=== PATIENT | female | born 1945 | race Caucasian/White ===

== ENCOUNTER → 2017-06-03 | Outpatient (CLI) | payer MEDICARE ==
[2017-06-03 11:42] LABS: ALT 56 U/L (9-52); AST 37 U/L (14-36); Cholesterol 194 mg/dL (<200); Creatine Kinase 150 U/L (30-135); Glucose 92 mg/dL (74-99); HDL Cholesterol 92 mg/dL (40-60); Non-African American GFR(MDRD) >60 (>60 ml/min/1.73 sqM); Triglycerides 114 mg/dL (<150)
[2017-06-03 14:07] LABS: Hemoglobin A1C 5.8 % (4.2-6.1)
== END | disposition home or self-care (01) ==
LOC: LABWHC1 11:03
PROVIDERS: ATTEND Internal Medicine
DX: E78.2 Mixed hyperlipidemia (principal); E03.9 Hypothyroidism, unspecified; E66.09 Other obesity due to excess calories; I25.10 Atherosclerotic heart disease of native coronary artery without angina pectoris; R73.09 Other abnormal glucose
CPT/HCPCS: 36415; 80061; 82172; 82306; 82550; 82565; 82947; 83036; 84443; 84450; 84460

== ENCOUNTER 2017-09-25 00:58 | Inpatient (IN) | payer MEDICARE ==
[2017-09-25] MEDS ORDERED: SODIUM CHLORIDE 0.9% 1,000 ML IV STA (01:21)
[2017-09-25] MEDS ORDERED: ONDANSETRON 4 MG/2 ML VIAL IVP STA (01:21)
[2017-09-25] MEDS ORDERED: MORPHINE SULFATE 2 MG/ML SYRINGE IVP ONE (01:22)
[2017-09-25 01:46] LABS: Basophils % (A) 0 %; CH 31.3; CHCM 34.1; Eosinophils # (A) 0.1 k/uL (0-0.7); Eosinophils % (A) 1 %; HCT 39.7 % (34.0-46.0); HDW 3.03; HGB 13.2 gm/dL (11.4-16.0); Luc # (Auto) 0.11; Luc % (Auto) 1; Lymphocytes % (A) 12 %; MCH 30.7 pg (25.0-35.0); MCHC 33.3 g/dL (31.0-37.0); MCV 92.2 fL (80.0-100.0); Mean Platelet Volume 8.4; Monocytes # (A) 0.5 k/uL (0-1.0); Monocytes % (A) 5 %; Neutrophils # (A) 6.9 k/uL (1.3-7.7); Neutrophils % (A) 80 %; RDW 13.1 % (11.5-15.5); WBC 8.6 k/uL (3.8-10.6); WBC (Perox) 8.91
[2017-09-25 01:55] LABS: Appearance,Urine Clear (Clear); Bilirubin,Urine Negative (Negative); Glucose,Urine (UA) Trace (Negative); Ketones,Urine Negative (Negative); Leukocyte Esterase,Urine Negative (Negative); Nitrite,Urine Negative (Negative); PH, Urine 7.5 (5.0-8.0); Protein,Urine Negative (Negative); Specific Gravity,Urine 1.006 (1.001-1.035); UA Billing (MACRO vs. MICRO) CHEM; Urobilinogen,Urine <2.0 mg/dL (<2.0)
[2017-09-25 02:02] LABS: ALT 442 U/L (9-52); AST 723 U/L (14-36); Alkaline Phosphatase 133 U/L (38-126); Amylase <30 U/L (30-110); Anion Gap 7 mmol/L; Blood Urea Nitrogen 17 mg/dL (7-17); Calcium 9.4 mg/dL (8.4-10.2); Carbon Dioxide 28 mmol/L (22-30); Chloride 102 mmol/L (98-107); Glucose 139 mg/dL (74-99); Non-African American GFR(MDRD) >60 (>60 ml/min/1.73 sqM); Potassium 3.8 mmol/L (3.5-5.1); Sodium 137 mmol/L (137-145); Total Bilirubin 1.1 mg/dL (0.2-1.3); Total Protein 6.4 g/dL (6.3-8.2)
[2017-09-25] MEDS ORDERED: HYDROmorphone 1 MG/ML 1 ML SYRINGE IVP STA ×2 (02:15→03:25)
[2017-09-25] MEDS ORDERED: RX INFO: IV CONTRAST WAS GIVEN 1 EACH MISC MISCELLANE PRN (02:19)
--- NOTE | 2017-09-25 02:39 | ED ---
Back Pain HPI - General Source: patient, EMS, RN notes reviewed, old records reviewed Limitations: no limitations, physical limitation <Sweta Patel - Last Filed: 09/25/17 03:17> <Sanjeev Faria - Last Filed: 09/25/17 18:38> - General Chief Complaint: Back Pain/Injury Stated Complaint: back pain Time Seen by Provider: 09/25/17 01:01 - History of Present Illness Initial Comments: 72-year-old female with recent right lower extremity ORIF for a bimalleolar fracture presents emergency department today with increased right-sided upper back pain radiates towards her right side of her abdomen. Patient reports that she's had increased urinary frequency. She thinks she may have urinary tract infection. She reports that she is currently staying [facility]. She states that she had one episode of vomiting and a low-grade fever, which prompted them to call EMS. Patient's sutures were removed from her right ankle today and she was evaluated by orthopedic physician. She reports that she 's been healing well. She was switched into a walking boot. Patient states that she's had a history of appendectomy, total hysterectomy. She reports she still has her gallbladder. She denies any history of kidney stones. Denies any changes in bowel habits or urination besides urinary frequency. Denies any chest pain or shortness of breath. (Sweta Patel) - Related Data Home Medications Medication Instructions Recorded Confirmed ALPRAZolam [Xanax] 0.25 mg PO BID PRN 09/05/17 09/25/17 Albuterol Nebulized [Ventolin 2.5 mg INHALATION RT-Q4H PRN 09/05/17 09/25/17 Nebulized] Albuterol Sulfate [Proair Hfa] 1 - 2 puff INHALATION RT-Q6H PRN 09/05/17 Calcium Carbonate [Calcium] 600 mg PO DAILY 09/05/17 09/25/17 Cetirizine HCl [Zyrtec] 10 mg PO DAILY 09/05/17 09/25/17 Cholecalciferol [Vitamin D3] 5,000 unit PO HS 09/05/17 09/25/17 Doxycycline Monohydrate [Monodox] 100 mg PO DAILY 09/05/17 09/25/17 Fish Oil/Dha/Epa [Fish Oil 1,200 1 cap PO DAILY 09/05/17 09/25/17 mg Fish Oil] Fluticasone Propionate [Flovent 1 puff INHALATION RT-BID 09/05/17 09/25/17 Hfa 44 mcg] Gabapentin [Neurontin] 800 mg PO TID 09/05/17 09/25/17 Levothyroxine Sodium [Synthroid] 100 mcg PO DAILY 09/05/17 09/25/17 Losartan Potassium [Cozaar] 25 mg PO DAILY 09/05/17 09/25/17 Magnesium 800 mg PO DAILY 09/05/17 09/25/17 Metoprolol Succinate (ER) [Toprol 50 mg PO BID 09/05/17 09/25/17 XL] Montelukast [Singulair] 10 mg PO HS 09/05/17 09/25/17 Multivitamins, Thera [Multivitamin 1 tab PO DAILY 09/05/17 09/25/17 (formulary)] Ranolazine [Ranexa] 500 mg PO BID 09/05/17 09/25/17 Tiotropium 18 Mcg/Puff [Spiriva] 1 cap INHALATION RT-DAILY 09/05/17 09/25/17 Triamterene/Hydrochlorothiazid 1 tab PO DAILY 09/05/17 09/25/17 [Triamterene-Hctz 37.5-25 mg Tb] Ubidecarenone [Co Q-10] 100 mg PO DAILY 09/05/17 09/25/17 Zolpidem [Ambien] 10 mg PO HS 09/05/17 09/25/17 amLODIPine [Norvasc] 10 mg PO DAILY 09/05/17 09/25/17 Fluticasone/Vilanterol [Breo 1 puff INHALATION RT-DAILY 09/25/17 09/25/17 Ellipta 100-25 Mcg Inhaler] HYDROcodone/APAP 7.5-325MG [[place] 1 tab PO Q6HR 09/25/17 09/25/17 7.5] Hydrocodone/Acetaminophen [[place] 1 tab PO TID PRN 09/25/17 09/25/17 7.5-325] Sennosides-Docusate Sodium 2 tab PO HS PRN 09/25/17 09/25/17 [Senokot-S] Previous Rx's Medication Instructions Recorded Aspirin 325 mg PO BID #60 tab 09/09/17 Psyllium Husk 100% [Metamucil 1 packet PO DAILY #7 packet 09/09/17 Packet] Allergies Allergy/AdvReac Type Severity Reaction Status Date / Time gluten Allergy Unknown Verified 09/05/17 19:33 hydromorphone [From Dilaudid] Allergy Unknown Verified 09/05/17 19:51 levofloxacin [From Levaquin] Allergy Unknown Verified 09/05/17 19:33 meperidine [From Demerol] Allergy Unknown Verified 09/05/17 19:51 moxifloxacin [From Avelox] Allergy Unknown Verified 09/05/17 20:37 nitrofurantoin Allergy Unknown Verified 09/05/17 20:37 [From Macrodantin] pitavastatin [From Livalo] Allergy Unknown Verified 09/05/17 20:37 prochlorperazine Allergy Unknown Verified 09/05/17 19:08 [From Compazine] solifenacin [From Vesicare] Allergy Unknown Verified 09/05/17 20:37 Sulfa (Sulfonamide Allergy Unknown Verified 09/05/17 19:08 Antibiotics) wheat Allergy Unknown Verified 09/05/17 19:33 Review of Systems ROS Other: All systems not noted in ROS Statement are negative. <Sweta Patel - Last Filed: 09/25/17 03:17> ROS Other: All systems not noted in ROS Statement are negative. <Sanjeev Faria - Last Filed: 09/25/17 18:38> ROS Statement: Those systems with pertinent positive or pertinent negative responses have been documented in the HPI. Past Medical History Past Medical History: Asthma, Hyperlipidemia, Hypertension Additional Past Medical History / Comment(s): neuropathy, left BB, history or cardiac caths, diverticulitis History of Any Multi-Drug Resistant Organisms: None Reported Past Surgical History: Appendectomy, Back Surgery, Bladder Surgery, Hysterectomy , Tonsillectomy Additional Past Surgical History / Comment(s): exp lap. ruptured ovary. bladder suspension, eye surgery Past Anesthesia/Blood Transfusion Reactions: No Reported Reaction Past Psychological History: No Psychological Hx Reported Smoking Status: Former smoker Past Alcohol Use History: None Reported Past Drug Use History: None Reported - Past Family History Mother Family Medical History: CVA/TIA Additional Family Medical History / Comment(s): TIA, at age 99 Father Family Medical History: Myocardial Infarction ([place]) Additional Family Medical History / Comment(s): of [place] at 73 Brother(s) Family Medical History: Diabetes Mellitus <Sweta Patel - Last Filed: 09/25/17 03:17> General Exam Limitations: no limitations, physical limitation General appearance: alert, in no apparent distress Head exam: Present: atraumatic, normocephalic, normal inspection Eye exam: Present: normal appearance, PERRL, EOMI. Absent: scleral icterus, conjunctival injection, periorbital swelling ENT exam: Present: normal exam, mucous membranes moist Neck exam: Present: normal inspection. Absent: tenderness, meningismus, lymphadenopathy Respiratory exam: Present: normal lung sounds bilaterally. Absent: respiratory distress, wheezes, rales, rhonchi, stridor Cardiovascular Exam: Present: regular rate, normal rhythm, normal heart sounds. Absent: systolic murmur, diastolic murmur, rubs, gallop, clicks GI/Abdominal exam: Present: soft, tenderness (RUQ tenderness), normal bowel sounds. Absent: distended, guarding, rebound, rigid Extremities exam: Present: normal inspection, full ROM, normal capillary refill , other (Patient has walking cast on R lower leg, ankle has recent incision from surgery. No Major swelling, redness or drainage. Normal dorsalis pedis pulse). Absent: tenderness, pedal edema, joint swelling, calf tenderness Back exam: Present: normal inspection Neurological exam: Present: alert, oriented X3, CN II-XII intact Psychiatric exam: Present: normal affect, normal mood Skin exam: Present: warm, dry, intact, normal color. Absent: rash <Sweta Patel - Last Filed: 09/25/17 03:17> <Sanjeev Faria - Last Filed: 09/25/17 18:38> - General Exam Comments Initial Comments: 72 year old female, no distress. (Sweta Patel) Course <Sweta Patel - Last Filed: 09/25/17 03:17> <Sanjeev Faria - Last Filed: 09/25/17 18:38> Vital Signs 09/25/17 09/25/17 09/25/17 01:01 03:15 04:01 Temperature 98.2 F 98.2 F Pulse Rate 75 78 72 Respiratory 18 16 16 Rate Blood Pressure 174/79 155/72 152/71 O2 Sat by Pulse 100 97 99 Oximetry - Reevaluation(s) Reevaluation #1: 09/25/17 03:18 is reevaluated and resting comfortably in bed. She reports her pain is diminished. Was informed that all results and she'll be admitted. Patient agrees. (Sweta Patel) Medical Decision Making - Lab Data Result diagrams: 09/25/17 01:35 09/25/17 01:35 - Radiology Data Radiology results: report reviewed <Sweta Patel - Last Filed: 09/25/17 03:17> - Lab Data Result diagrams: 09/25/17 01:35 09/25/17 01:35 <Sanjeev Faria - Last Filed: 09/25/17 18:38> - Medical Decision Making 72-year-old female with recent history of right ankle ORIF presents emergency Department with right-sided back pain radiate towards the front of her abdomen for approximately one day. She reports that it was only area of her "brown strep". Patient had one episode of vomiting and a low-grade fever when she was at the [facility]. She is currently there for rehab after ORIF. At this time patient's lab work was reviewed. Urinalysis is negative. White blood cell count was within normal limits. Patient does have significantly elevated liver enzymes.AST is 723, ALTs 442, ALP is 133. Her total bilirubin is 1.1. Patient's lab work on 09/16/2017 showed an AST of 35, ALTs 51, and ALP of 72. Her total bilirubin was 0.3 at that time. Did order an acute hepatitis panel. Computed tomography scan shows significantly dilated gallbladder. At the emergency department patient has no fever, vital signs are all stable. CT adipose tissue signs of acute cholecystitis. Right upper quadrant ultrasound be ordered for the morning. Patient will be admitted at this time. I'll start the patient on antibiotics, Zosyn. Discussed Dr. Faria, who will discuss this with Dr. Francis. Patient will admitted to Dr. Francis. (Sweta Patel) I saw this patient in conjunction with the physician ophthalmic surgical assistant. I performed independent history and physical exam. Agree with case management. Case discussed with Dr. Toro who is covering tonight for Dr. Francis. (Sanjeev Faria) - Lab Data Lab Results 09/25/17 09/25/17 09/25/17 Range/Units 01:31 01:35 01:35 WBC 8.6 (3.8-10.6) k/uL RBC 4.30 (3.80-5.40) m/uL Hgb 13.2 (11.4-16.0) gm/dL Hct 39.7 (34.0-46.0) % MCV 92.2 (80.0-100.0) fL MCH 30.7 (25.0-35.0) pg MCHC 33.3 (31.0-37.0) g/dL RDW 13.1 (11.5-15.5) % Plt Count 266 (150-450) k/uL Neutrophils % 80 % Lymphocytes % 12 % Monocytes % 5 % Eosinophils % 1 % Basophils % 0 % Neutrophils # 6.9 (1.3-7.7) k/uL Lymphocytes # 1.0 (1.0-4.8) k/uL Monocytes # 0.5 (0-1.0) k/uL Eosinophils # 0.1 (0-0.7) k/uL Basophils # 0.0 (0-0.2) k/uL Sodium 137 (137-145) mmol/L Potassium 3.8 (3.5-5.1) mmol/L Chloride 102 (98-107) mmol/L Carbon Dioxide 28 (22-30) mmol/L Anion Gap 7 mmol/L BUN 17 (7-17) mg/dL Creatinine 0.70 (0.52-1.04) mg/dL Est GFR (MDRD) Af Amer >60 (>60 ml/min/1.73 sqM) Est GFR (MDRD) Non-Af >60 (>60 ml/min/1.73 sqM) Glucose 139 H (74-99) mg/dL Calcium 9.4 (8.4-10.2) mg/dL Total Bilirubin 1.1 (0.2-1.3) mg/dL AST 723 H (14-36) U/L ALT 442 H (9-52) U/L Alkaline Phosphatase 133 H (38-126) U/L Total Protein 6.4 (6.3-8.2) g/dL Albumin 3.7 (3.5-5.0) g/dL Amylase <30 L (30-110) U/L Lipase 96 (23-300) U/L Urine Color Light Yellow Urine Appearance Clear (Clear) Urine pH 7.5 (5.0-8.0) Ur Specific [place] 1.006 (1.001-1.035) Urine Protein Negative (Negative) Urine Glucose (UA) Trace H (Negative) Urine Ketones Negative (Negative) Urine Blood Negative (Negative) Urine Nitrite Negative (Negative) Urine Bilirubin Negative (Negative) Urine Urobilinogen <2.0 (<2.0) mg/dL Ur Leukocyte Esterase Negative (Negative) Hepatitis A IgM Ab (Non-Reactive) Hep Bs Antigen (Non-Reactive) Hep B Core IgM Ab (Non-Reactive) Hep C IgG Ab (Non-Reactive) 09/25/17 Range/Units 01:35 WBC (3.8-10.6) k/uL RBC (3.80-5.40) m/uL Hgb (11.4-16.0) gm/dL Hct (34.0-46.0) % MCV (80.0-100.0) fL MCH (25.0-35.0) pg MCHC (31.0-37.0) g/dL RDW (11.5-15.5) % Plt Count (150-450) k/uL Neutrophils % % Lymphocytes % % Monocytes % % Eosinophils % % Basophils % % Neutrophils # (1.3-7.7) k/uL Lymphocytes # (1.0-4.8) k/uL Monocytes # (0-1.0) k/uL Eosinophils # (0-0.7) k/uL Basophils # (0-0.2) k/uL Sodium (137-145) mmol/L Potassium (3.5-5.1) mmol/L Chloride (98-107) mmol/L Carbon Dioxide (22-30) mmol/L Anion Gap mmol/L BUN (7-17) mg/dL Creatinine (0.52-1.04) mg/dL Est GFR (MDRD) Af Amer (>60 ml/min/1.73 sqM) Est GFR (MDRD) Non-Af (>60 ml/min/1.73 sqM) Glucose (74-99) mg/dL Calcium (8.4-10.2) mg/dL Total Bilirubin (0.2-1.3) mg/dL AST (14-36) U/L ALT (9-52) U/L Alkaline Phosphatase (38-126) U/L Total Protein (6.3-8.2) g/dL Albumin (3.5-5.0) g/dL Amylase (30-110) U/L Lipase (23-300) U/L Urine Color Urine Appearance (Clear) Urine pH (5.0-8.0) Ur Specific [place] (1.001-1.035) Urine Protein (Negative) Urine Glucose (UA) (Negative) Urine Ketones (Negative) Urine Blood (Negative) Urine Nitrite (Negative) Urine Bilirubin (Negative) Urine Urobilinogen (<2.0) mg/dL Ur Leukocyte Esterase (Negative) Hepatitis A IgM Ab Non-Reactive (Non-Reactive) Hep Bs Antigen Non-Reactive (Non-Reactive) Hep B Core IgM Ab Non-Reactive (Non-Reactive) Hep C IgG Ab Non-Reactive (Non-Reactive) - Radiology Data Sigmoid diverticulosis without sign of diverticulitis. No sign of appendicitis. Distended gallbladder with mild gallbladder wall thickening that is suggestive of cholecystitis. (Sweta Patel) Disposition Time of Disposition: 02:53 <Sweta Patel - Last Filed: 09/25/17 03:17> <Sanjeev Faria - Last Filed: 09/25/17 18:38> Clinical Impression: Elevated liver enzymes, Closed bimalleolar fracture of right ankle, Cholecystitis Disposition: ADMITTED IP TO THIS HOSP Condition: Stable
[2017-09-25] MEDS ORDERED: NALOXONE 0.4 MG/ML 1 ML VIAL IV PRN (02:53)
[2017-09-25] MEDS ORDERED: BISACODYL 5 MG TABLET.DR PO PRN (02:53)
[2017-09-25] MEDS ORDERED: IBUPROFEN 400 MG TAB PO PRN (02:53)
[2017-09-25] MEDS ORDERED: ACETAMINOPHEN TAB 325 MG TAB PO PRN (02:53)
--- NOTE | 2017-09-25 03:01 | CT ---
EXAMINATION TYPE: CT abdomen pelvis w con DATE OF EXAM: 09/25/2017 COMPARISON: NONE HISTORY: Elevated liver enzymes CT DLP: mGycm Automated exposure control for dose reduction was used. TECHNIQUE: Helical acquisition of images was performed from the lung bases through the pelvis. CONTRAST: The contrast was Omnipaque 100 mL.. FINDINGS: Lung bases are clear of consolidation. There is no pleural effusion. There is no pericardial effusion . Liver appears normal. Bile ducts are not dilated. Spleen appears normal. There is no pancreatic mas s. There is mild gallbladder wall thickening. Gallbladder is distended. Intrahepatic bile ducts are n ot dilated. There is no adrenal mass. Kidneys have normal size with normal contrast opacification. There is no hy dronephrosis. There are probably small pelvic cysts.. Ureters are not dilated. There is no hydronephr osis. There are sigmoid diverticula. There is no sign of diverticulitis. I see no intestinal wall thi ckening. There are no dilated loops. There is no sign of a bowel obstruction. Bladder distends smooth ly. There is no ascites. Bony structures are intact. IMPRESSION: THERE IS SIGMOID DIVERTICULOSIS WITHOUT SIGN OF DIVERTICULITIS. NO SIGN OF APPENDICITIS. DISTENDED GALLBLADDER WITH MILD GALLBLADDER WALL THICKENING THAT IS SUGGESTIVE OF CHOLECYSTITIS.
[2017-09-25] MEDS ORDERED: PIPERACILLIN-TAZOBACTAM 3.375 GM in DEXTROSE/WATER 1 50ML.BAG IVPB STA (03:10)
[2017-09-25] MEDS: SODIUM CHLORIDE 0.9% 1,000 ML IV SCH ×3 (03:27→21:54)
[2017-09-25 05:12] VITALS: BMI 30.4
[2017-09-25] MEDS: ONDANSETRON 4 MG/2 ML VIAL IVP PRN (05:39)
[2017-09-25] MEDS: HYDROmorphone 1 MG/ML 1 ML SYRINGE IVP PRN ×2 (05:39→15:19)
[2017-09-25] MEDS: KETOROLAC 30 MG/ML 1 ML VIAL IVP PRN ×3 (07:30→18:07)
--- NOTE | 2017-09-25 08:33 | P.GSHP ---
History of Present Illness H&P Date: 09/25/17 Chief Complaint: Right back right upper quadrant abdominal pain. The patient was admitted through the emergency room early hours of this morning. Presented with the sudden onset of pain in the right the back of right flank the lower chest area with some radiation to the abdomen. No past history of similar symptoms. Did have several episodes of nausea and vomiting. No definite fever or chills. Had recent ORIF are felt by malleolus fracture of the right ankle. No past history of gallbladder disease. She doesn't recall any family history of gallbladder disease. Apparently she was found to have elevated liver enzymes and a CAT scan showed the enlarged gallbladder with slight thickening of the abdomen was normal and WBC was normal. Past history well documented. Positive for hypertension asthma appendectomy explore laparotomy to ovarian cyst from endometriosis hysterectomy The meds as listed. ALLERGIES multiple including Dilaudid and Levaquin gluten Demerol, sulfa drugs. Systems review. No chest pain no cough or hemoptysis. Discomfort right lower extremity from the surgery. Has had some urinary frequency. Low-grade fever after she was admitted. On examination the patient is awake alert in no acute distress. She is anicteric. Hydration is borderline mucous membranes a little dry. Head and neck otherwise normal. Heart regular rhythm no murmurs lungs are clear abdomen is somewhat rounded the little overweight. The mild tenderness in the right upper quadrant of with no guarding or rebound or rigidity. No masses palpable. No hernias are noted. Extremities has right lower extremity immobilizer in place. No edema [employer] grossly intact focal deficits. CT was reviewed. No definite gallstones. Slight thickening of the gallbladder wall. Mild diverticulosis without evidence of acute diverticulitis. The liver enzymes were no marked good the elevation of her LFTs but the bili bilirubin is normal. CT was normal hemoglobin is normal urinalysis is unremarkable. Impression right lower back right upper quadrant pain. Normal LFTs. Not convinced her symptoms are secondary to acute cholecystitis. Her graft recommendation Will W ultrasound of afterwards performed today. Get GI consult. Check her the hepatitis profile. Further management will depend on her clinical course and findings. Past Medical History Past Medical History: Asthma, Hyperlipidemia, Hypertension Additional Past Medical History / Comment(s): neuropathy, left BB, history or cardiac caths, diverticulitis History of Any Multi-Drug Resistant Organisms: None Reported Past Surgical History: Appendectomy, Back Surgery, Bladder Surgery, Hysterectomy , Tonsillectomy Additional Past Surgical History / Comment(s): exp lap. ruptured ovary. bladder suspension, eye surgery Past Anesthesia/Blood Transfusion Reactions: No Reported Reaction Past Psychological History: No Psychological Hx Reported Smoking Status: Former smoker Past Alcohol Use History: None Reported Past Drug Use History: None Reported - Past Family History Mother Family Medical History: CVA/TIA Additional Family Medical History / Comment(s): TIA, at age 99 Father Family Medical History: Myocardial Infarction ([place]) Additional Family Medical History / Comment(s): of [place] at 73 Brother(s) Family Medical History: Diabetes Mellitus Medications and Allergies Home Medications Medication Instructions Recorded Confirmed Type ALPRAZolam [Xanax] 0.25 mg PO BID PRN 09/05/17 09/25/17 History Albuterol Nebulized [Ventolin 2.5 mg INHALATION RT-Q4H PRN 09/05/17 09/25/17 History Nebulized] Albuterol Sulfate [Proair Hfa] 1 - 2 puff INHALATION RT-Q6H PRN 09/05/17 History Calcium Carbonate [Calcium] 600 mg PO DAILY 09/05/17 09/05/17 History Cetirizine HCl [Zyrtec] 10 mg PO DAILY 09/05/17 09/25/17 History Cholecalciferol [Vitamin D3] 5,000 unit PO HS 09/05/17 09/25/17 History Doxycycline Monohydrate [Monodox] 100 mg PO DAILY 09/05/17 09/05/17 History Fish Oil/Dha/Epa [Fish Oil 1,200 1 cap PO DAILY 09/05/17 09/05/17 History mg Fish Oil] Fluticasone Propionate [Flovent 1 puff INHALATION RT-BID 09/05/17 09/25/17 History Hfa 44 mcg] Gabapentin [Neurontin] 800 mg PO TID 09/05/17 09/25/17 History Levothyroxine Sodium [Synthroid] 100 mcg PO DAILY 09/05/17 09/05/17 History Losartan Potassium [Cozaar] 25 mg PO DAILY 09/05/17 09/05/17 History Magnesium 4 PO DAILY 09/05/17 History Metoprolol Succinate (ER) [Toprol 50 mg PO BID 09/05/17 09/25/17 History XL] Montelukast [Singulair] 10 mg PO HS 09/05/17 09/05/17 History Multivitamins, Thera [Multivitamin 1 tab PO DAILY 09/05/17 09/05/17 History (formulary)] Ranolazine [Ranexa] 500 mg PO BID 09/05/17 09/25/17 History Tiotropium 18 Mcg/Puff [Spiriva] 1 cap INHALATION RT-DAILY 09/05/17 09/25/17 History Triamterene/Hydrochlorothiazid 1 tab PO DAILY 09/05/17 09/05/17 History [Triamterene-Hctz 37.5-25 mg Tb] Ubidecarenone [Co Q-10] 100 mg PO DAILY 09/05/17 09/05/17 History Zolpidem [Ambien] 10 mg PO HS 09/05/17 09/05/17 History amLODIPine [Norvasc] 10 mg PO DAILY 09/05/17 09/05/17 History Aspirin 325 mg PO BID #60 tab 09/09/17 09/25/17 Rx Psyllium Husk 100% [Metamucil 1 packet PO DAILY #7 packet 09/09/17 09/25/17 Rx Packet] Fluticasone/Vilanterol [Breo 1 puff INHALATION RT-DAILY 09/25/17 09/25/17 History Ellipta 100-25 Mcg Inhaler] HYDROcodone/APAP 7.5-325MG [[place] 1 tab PO Q6HR 09/25/17 09/25/17 History 7.5] Hydrocodone/Acetaminophen [[place] 1 tab PO TID PRN 09/25/17 09/25/17 History 7.5-325] Sennosides-Docusate Sodium 2 tab PO HS PRN 09/25/17 09/25/17 History [Senokot-S] Allergies Allergy/AdvReac Type Severity Reaction Status Date / Time gluten Allergy Unknown Verified 09/05/17 19:33 hydromorphone [From Dilaudid] Allergy Unknown Verified 09/05/17 19:51 levofloxacin [From Levaquin] Allergy Unknown Verified 09/05/17 19:33 meperidine [From Demerol] Allergy Unknown Verified 09/05/17 19:51 moxifloxacin [From Avelox] Allergy Unknown Verified 09/05/17 20:37 nitrofurantoin Allergy Unknown Verified 09/05/17 20:37 [From Macrodantin] pitavastatin [From Livalo] Allergy Unknown Verified 09/05/17 20:37 prochlorperazine Allergy Unknown Verified 09/05/17 19:08 [From Compazine] solifenacin [From Vesicare] Allergy Unknown Verified 09/05/17 20:37 Sulfa (Sulfonamide Allergy Unknown Verified 09/05/17 19:08 Antibiotics) wheat Allergy Unknown Verified 09/05/17 19:33 Surgical - Exam Vital Signs Temp Pulse Resp BP Pulse Ox 98.2 F 75 18 174/79 100 09/25/17 01:01 09/25/17 01:01 09/25/17 01:01 09/25/17 01:01 09/25/17 01:01 Results - Labs 09/25/17 01:35 09/25/17 01:35 Abnormal Lab Results - Last 24 Hours (Table) 09/25/17 09/25/17 Range/Units 01:31 01:35 Glucose 139 H (74-99) mg/dL AST 723 H (14-36) U/L ALT 442 H (9-52) U/L Alkaline Phosphatase 133 H (38-126) U/L Amylase <30 L (30-110) U/L Urine Glucose (UA) Trace H (Negative) Diabetes panel 09/25/17 Range/Units 01:35 Sodium 137 (137-145) mmol/L Potassium 3.8 (3.5-5.1) mmol/L Chloride 102 (98-107) mmol/L Carbon Dioxide 28 (22-30) mmol/L BUN 17 (7-17) mg/dL Creatinine 0.70 (0.52-1.04) mg/dL Glucose 139 H (74-99) mg/dL Calcium 9.4 (8.4-10.2) mg/dL AST 723 H (14-36) U/L ALT 442 H (9-52) U/L Alkaline Phosphatase 133 H (38-126) U/L Total Protein 6.4 (6.3-8.2) g/dL Albumin 3.7 (3.5-5.0) g/dL Calcium panel 09/25/17 Range/Units 01:35 Calcium 9.4 (8.4-10.2) mg/dL Albumin 3.7 (3.5-5.0) g/dL Pituitary panel 09/25/17 Range/Units 01:35 Sodium 137 (137-145) mmol/L Potassium 3.8 (3.5-5.1) mmol/L Chloride 102 (98-107) mmol/L Carbon Dioxide 28 (22-30) mmol/L BUN 17 (7-17) mg/dL Creatinine 0.70 (0.52-1.04) mg/dL Glucose 139 H (74-99) mg/dL Calcium 9.4 (8.4-10.2) mg/dL Adrenal panel 09/25/17 Range/Units 01:35 Sodium 137 (137-145) mmol/L Potassium 3.8 (3.5-5.1) mmol/L Chloride 102 (98-107) mmol/L Carbon Dioxide 28 (22-30) mmol/L BUN 17 (7-17) mg/dL Creatinine 0.70 (0.52-1.04) mg/dL Glucose 139 H (74-99) mg/dL Calcium 9.4 (8.4-10.2) mg/dL Total Bilirubin 1.1 (0.2-1.3) mg/dL AST 723 H (14-36) U/L ALT 442 H (9-52) U/L Alkaline Phosphatase 133 H (38-126) U/L Total Protein 6.4 (6.3-8.2) g/dL Albumin 3.7 (3.5-5.0) g/dL
[2017-09-25] MEDS: PANTOPRAZOLE 40 MG/10 ML VIAL IV SCH (08:43)
--- NOTE | 2017-09-25 09:56 | US ---
EXAMINATION TYPE: US gallbladder DATE OF EXAM: 09/25/2017 COMPARISON: CT abdomen and pelvis from earlier today CLINICAL HISTORY: Pain. known GB disease per CT and labs, surgery set for 09/26/2017 EXAM MEASUREMENTS: Liver Length: 15.4 cm Gallbladder Wall: 0.4 cm CBD: 0.6 cm Right Kidney: 10.3 x 5.3 x 4.1 cm Pancreas: limited views due to gas appears wnl Liver: difficult to penetrate due to gas and distended 10.5cm, diseased GB Gallbladder: thickened gb wall with internal debris that could include small stones, sludge and or p olyps Evidence for sonographic Haines's sign: no CBD: wnl Right Kidney: wnl Visualized pancreas is within normal limits. IVC is seen near hepatic dome. Visualized liver is heter ogeneously hyperechoic likely on basis of fatty infiltration. Gallbladder has distended margins and i s prominent in size. It is not completely anechoic suggesting small stones or gallbladder sludge. Gal lbladder wall is mildly thickened at 4 mm. No pericholecystic fluid collection is seen. Sonographic M urphy's sign is negative. IMPRESSION: Findings correlate with CT, prominent gallbladder with distended margins, suspect interna l sludge or small stones and mild gallbladder wall thickening. Acute cholecystitis cannot be excluded in the appropriate clinical setting.
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
[2017-09-25] MEDS: PIPERACILLIN-TAZOBACTAM 3.375 GM in DEXTROSE/WATER 1 50ML.BAG IVPB SCH ×2 (12:57→20:12)
[2017-09-25] MEDS ORDERED: SENNOSIDES-DOCUSATE SODIUM 1 EACH TAB PO PRN (17:24)
[2017-09-25] MEDS ORDERED: ALBUTEROL INHALER 60 PUFF/8 GM INHALER INHALATION PRN (17:24)
[2017-09-25] MEDS: HYDROcodone/APAP 7.5-325MG 1 EACH TAB PO PRN (19:23)
[2017-09-25] MEDS ORDERED: BUDESONIDE 0.5 MG/2 ML NEBU INHALATION SCH (20:00)
[2017-09-25] MEDS: amLODIPine 10 MG TAB PO SCH (20:08)
[2017-09-25] MEDS: LOSARTAN 25 MG TAB PO SCH (20:09)
[2017-09-25] MEDS: RANOLAZINE 500 MG TAB.ER.12H PO SCH (20:09)
[2017-09-25] MEDS: MONTELUKAST 10 MG TAB PO SCH (20:09)
[2017-09-25] MEDS: METOPROLOL SUCCINATE (ER) 50 MG TAB.ER.24H PO SCH (20:09)
[2017-09-25] MEDS: TRIAMTERENE-HCTZ 37.5-25MG 1 EACH TAB PO SCH (20:10)
[2017-09-25] MEDS: CHOLECALCIFEROL 1,000 UNIT TAB PO SCH (20:12)
[2017-09-25] MEDS: GABAPENTIN 400 MG CAP PO SCH (21:40)
[2017-09-25] MEDS: ZOLPIDEM 10 MG TAB PO SCH (21:40)
[2017-09-26] MEDS: HYDROmorphone 1 MG/ML 1 ML SYRINGE IVP PRN ×5 (01:35→17:49)
[2017-09-26] MEDS: KETOROLAC 30 MG/ML 1 ML VIAL IVP PRN (02:34)
[2017-09-26] MEDS: ONDANSETRON 4 MG/2 ML VIAL IVP PRN (02:49)
[2017-09-26] MEDS: PIPERACILLIN-TAZOBACTAM 3.375 GM in DEXTROSE/WATER 1 50ML.BAG IVPB SCH ×3 (03:29→20:34)
[2017-09-26] MEDS: SODIUM CHLORIDE 0.9% 1,000 ML IV SCH ×2 (03:46→08:40)
[2017-09-26] MEDS: LEVOTHYROXINE 100 MCG TAB PO SCH (05:04)
[2017-09-26 07:16] LABS: CHCM 33.2; HCT 38.8 % (34.0-46.0); HDW 3.17; HGB 12.5 gm/dL (11.4-16.0); MCH 30.3 pg (25.0-35.0); MCHC 32.2 g/dL (31.0-37.0); MCV 93.9 fL (80.0-100.0); Mean Platelet Volume 8.6; RBC 4.13 m/uL (3.80-5.40); RDW 13.7 % (11.5-15.5); WBC 8.8 k/uL (3.8-10.6)
[2017-09-26 07:25] LABS: Partial Thromboplastin Time 22.3 sec (22.0-30.0); Prothrombin Time 10.2 sec (9.0-12.0)
[2017-09-26 07:26] LABS: ALT 614 U/L (9-52); AST 457 U/L (14-36); Alkaline Phosphatase 197 U/L (38-126); Anion Gap 8 mmol/L; Bilirubin, Delta 1.7 mg/dL (0.0-0.2); Blood Urea Nitrogen 9 mg/dL (7-17); Calcium 9.2 mg/dL (8.4-10.2); Carbon Dioxide 26 mmol/L (22-30); Chloride 106 mmol/L (98-107); Glucose 121 mg/dL (74-99); Non-African American GFR(MDRD) >60 (>60 ml/min/1.73 sqM); Potassium 3.7 mmol/L (3.5-5.1); Sodium 140 mmol/L (137-145); Total Bilirubin 4.6 mg/dL (0.2-1.3); Total Protein 6.1 g/dL (6.3-8.2)
[2017-09-26] MEDS: amLODIPine 10 MG TAB PO SCH (08:12)
[2017-09-26] MEDS: LORATADINE 10 MG TAB PO SCH (08:13)
[2017-09-26] MEDS: GABAPENTIN 400 MG CAP PO SCH ×3 (08:13→22:22)
[2017-09-26] MEDS: METOPROLOL SUCCINATE (ER) 50 MG TAB.ER.24H PO SCH ×2 (08:13→20:36)
[2017-09-26] MEDS: LOSARTAN 25 MG TAB PO SCH (08:14)
[2017-09-26] MEDS: CALCIUM CARBONATE 500 MG CHEWABLE PO SCH ×2 (08:15→08:18)
[2017-09-26] MEDS: RANOLAZINE 500 MG TAB.ER.12H PO SCH ×2 (08:15→20:36)
[2017-09-26] MEDS: PANTOPRAZOLE 40 MG/10 ML VIAL IV SCH (08:15)
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
[2017-09-26] MEDS: MULTIVITAMINS, THERA 1 EACH TAB PO SCH (08:16)
[2017-09-26] MEDS: MAGNESIUM OXIDE 400 MG TAB PO SCH (08:18)
[2017-09-26] MEDS: TRIAMTERENE-HCTZ 37.5-25MG 1 EACH TAB PO SCH (08:19)
[2017-09-26] MEDS: SYMBICORT 80-4.5 MCG INHALER INHALATION SCH ×2 (09:09→20:46)
[2017-09-26] MEDS: IPRATROPIUM 0.5 MG/2.5 ML NEBU INHALATION SCH ×4 (09:09→20:46)
[2017-09-26] MEDS ORDERED: INDOMETHACIN 50MG SUPPOSITORY RECTAL ONE (13:00)
[2017-09-26] MEDS ORDERED: IV FLUID CONTINUATION 1,000 ML IV ONE (15:31)
[2017-09-26] MEDS ORDERED: LIDOCAINE 1% INJ 10MG/ML (20 ML MDV) ONE (15:31)
[2017-09-26] MEDS ORDERED: KETAMINE 10 MG/ML 20 ML VIAL ONE (15:31)
[2017-09-26] MEDS ORDERED: PROPOFOL 10 MG/ML 20 ML VIAL IV ONE (15:31)
[2017-09-26] MEDS ORDERED: MIDAZOLAM 2 MG/2 ML VIAL ONE (15:31)
[2017-09-26] MEDS ORDERED: GLYCOPYRROLATE 0.2 MG/ML 2 ML VIAL ONE (15:31)
--- NOTE | 2017-09-26 15:56 | P.PCN ---
Date of Procedure: 09/26/17 Procedure(s) Performed: Brief history: Patient is a 72 year-old pleasant lady scheduled for an ERCP as part of evaluation of abdominal pain and elevated serum transaminases for the last 2 days' duration. Her labs today showed total bilirubin of 4.9 and elevated serum transaminases. Ultrasound showed multiple gallstones but no biliary ductal dilation. Procedure performed: ERCP with biliary sphincterotomy and balloon stone extraction Preoperative diagnoses: Abdominal pain, elevated LFTs and jaundice IV sedation per anesthesia: Procedure: After informed consent was obtained from the patient and after the risks benefits and complications including bleeding perforation and pancreatitis explained in detail the patient was brought into the endoscopy unit. The patient was placed in prone position and IV conscious sedation was administered by anesthesia under continuous monitoring. The Olympus side-viewing duodenoscope was then inserted into the mouth and esophagus intubated without any difficulty. The scope was gradually advanced into the stomach and duodenum. The major papilla was identified without any difficulty. Initial cannulation resulted in opacification of the common bile duct which appears slightly dilated measuring 8 mm in diameter. They revealed several filling defects noted in the common bile duct. There was no intrahepatic biliary ductal dilation. At this time the catheter was exchanged with a guidewire and a biliary sphincterotome was passed over the guidewire and gently advanced into the distal CBD. A biliary sphincterotomy was performed at 12 o'clock position and was extended to 1 cm. Following this a 9 mm balloon was passed over the guidewire into the proximal CBD, gently inflated and withdrawn and there was large amount of thick green sludge along with small stones were seen exiting the ampulla. This maneuver was repeated 2 more times. At this time occlusion cholangiogram was performed and no other filling defects were seen and the procedure was terminated and the patient tolerated the procedure well. The pancreatic duct was intentionally not cannulated during the entire procedure. Impression: Slightly dilated common bile duct with multiple filling defects status post biliary sphincterotomy and balloon stone extraction as described above. Large amount of sludge and small stones were seen exiting the ampulla. Pancreatic duct intentionally not cannulated. Recommendations: The findings of this examination were discussed with the patient as well as a family. She'll be started on a clear liquid diet diet today. We'll repeat labs in the morning. Continue IV antibiotics.
--- NOTE | 2017-09-26 18:33 | P.PN ---
Progress Note - Text Progress Note Date: 09/26/17 the patient's repeat labs this morning showed the hyperbilirubinemia quite elevated at 4.9. Therefore ERCP was performed today. Multiple small stones and sludge. Evacuated from the common bile duct. Sphincterotomy was also performed. Patient is doing much better now. She is awake alert. Has minimal discomfort. Vitals are stable. Temperature is normal. Abdomen is soft and benign with mild epigastric the right upper quadrant tenderness but no guarding or rebound. Impression cholelithiasis with the choledocholithiasis with jaundice and the suspect acute cholecystitis. Recommendation I recommended the laparoscopic cholecystectomy possible open and informed consent was obtained. Patient understood and agree to proceed.
--- NOTE | 2017-09-26 20:30 | PN ---
PROGRESS NOTE DATE OF SERVICE: 09/26/2017 This 72-year-old woman who was admitted with severe abdominal pain appears to have acute cholecystitis. The patient has a history of back pain which is radiating to the front at this time. LFTs are elevated. ERCP is being planned at this time. There is no history of any fever, rigors, chills. PAST MEDICAL HISTORY: Reviewed. REVIEW OF SYSTEMS: CARDIOVASCULAR: No angina, palpitations. RESPIRATORY: As mentioned earlier. GI: Mentioned earlier. : No dysuria, retention. CURRENT MEDICATIONS: 1. Reviewed, include Tylenol every 6 hours p.r.n. 2. [place] 7.5 p.r.n. 3. Xanax. 4. Norvasc. 5. Dulcolax. 6. Tums. 7. Vitamin D3. 8. Dilaudid 1 mg q.3h p.r.n. 9. Atrovent. 10.Synthroid 100 mcg p.o. daily. 11.Claritin 10 mg p.o. q.8h. 12.Magnesium oxide 800 mg daily. 13.Toprol-XL 50 mg p.o. daily. 14.Multivitamin. 15.Narcan. 16.Zofran. 17.Protonix p.r.n. PHYSICAL EXAM: Patient is alert, oriented x3. Pulse 76, blood pressure 122/68, respirations 17, temperature 98.8, pulse ox 93% on room air. HEENT: Conjunctivae normal. Oral mucosa moist. NECK: No jugular venous distention. No carotid bruits. No lymph node enlargement. CARDIOVASCULAR: S1, S2 muffled. RESPIRATORY: Breath sounds diminished in the bases. A few scattered rhonchi. No crackles. ABDOMEN: Soft. Mild diffuse tenderness and some rebound tenderness in the right upper quadrant. No guarding. No rigidity. Bowel sounds diminished. No ascites. No other mass palpable. LEGS: No edema. No swelling. NERVOUS SYSTEM: Higher functions as mentioned earlier. Moves all 4 limbs. No focal deficits. LYMPHATIC: No lymphadenopathy in neck, axillae or groins. SKIN: No ulcer, rash or bleeding. LABS: At this time show CBC within normal limits. Total bilirubin is 4.6 and conjugated bilirubin 2.2. Other labs noted. ASSESSMENT: 1. Acute right upper quadrant abdominal pain, possible acute cholecystitis and possibly choledocholithiasis. 2. Elevated LFTs, possibly secondary to choledocholithiasis or hepatitis. 3. History of asthma. 4. Hypertension. 5. Hyperlipidemia. 6. History of neuropathy. 7. Irritable bowel syndrome. 8. History of back pain and degenerative joint disease. RECOMMENDATIONS AND DISCUSSION: In this 72-year-old woman who presented with multiple complex medical issues, will monitor the patient closely. Continue the current medical management and symptomatic treatment will be provided. Otherwise, I would recommend resuming the home medications, also recommend DVT prophylaxis. Otherwise, broad-spectrum IV antibiotics initiated, surgical consultation, ERCP. Guarded prognosis because of multiple complex medical issues. Further recommendations to follow. MMODL / IJN: [id number] /
[2017-09-26] MEDS: CHOLECALCIFEROL 1,000 UNIT TAB PO SCH (20:35)
[2017-09-26] MEDS: MONTELUKAST 10 MG TAB PO SCH (20:36)
[2017-09-26] MEDS: HEPARIN SODIUM,PORCINE 5,000 UNIT/ML 1 ML VIAL SQ SCH (20:36)
[2017-09-26] MEDS: ZOLPIDEM 10 MG TAB PO SCH (20:37)
[2017-09-27] MEDS: SODIUM CHLORIDE 0.9% 1,000 ML IV SCH ×3 (00:39→11:24)
[2017-09-27] MEDS: PIPERACILLIN-TAZOBACTAM 3.375 GM in DEXTROSE/WATER 1 50ML.BAG IVPB SCH ×3 (04:21→22:14)
[2017-09-27] MEDS: HYDROmorphone 1 MG/ML 1 ML SYRINGE IVP PRN ×3 (05:07→20:54)
[2017-09-27] MEDS: LEVOTHYROXINE 100 MCG TAB PO SCH (05:27)
[2017-09-27 07:22] LABS: Basophils % (A) 0 %; CH 31.6; CHCM 34.1; Eosinophils # (A) 0.3 k/uL (0-0.7); Eosinophils % (A) 5 %; HCT 34.3 % (34.0-46.0); HDW 3.46; HGB 11.3 gm/dL (11.4-16.0); Luc # (Auto) 0.11; Luc % (Auto) 2; Lymphocytes % (A) 20 %; MCH 30.8 pg (25.0-35.0); MCV 93.2 fL (80.0-100.0); Mean Platelet Volume 8.4; Monocytes # (A) 0.5 k/uL (0-1.0); Monocytes % (A) 11 %; Neutrophils # (A) 3.2 k/uL (1.3-7.7); Neutrophils % (A) 62 %; Poikilocytosis Slight; RBC 3.69 m/uL (3.80-5.40); RDW 12.4 % (11.5-15.5); WBC 5.1 k/uL (3.8-10.6); WBC (Perox) 5.09
[2017-09-27 07:58] LABS: ALT 331 U/L (9-52); AST 150 U/L (14-36); Alkaline Phosphatase 163 U/L (38-126); Anion Gap 4 mmol/L; Blood Urea Nitrogen 8 mg/dL (7-17); Calcium 8.6 mg/dL (8.4-10.2); Carbon Dioxide 27 mmol/L (22-30); Chloride 108 mmol/L (98-107); Glucose 112 mg/dL (74-99); Non-African American GFR(MDRD) >60 (>60 ml/min/1.73 sqM); Potassium 3.2 mmol/L (3.5-5.1); Sodium 139 mmol/L (137-145); Total Bilirubin 3.6 mg/dL (0.2-1.3); Total Protein 5.2 g/dL (6.3-8.2)
[2017-09-27] MEDS: SYMBICORT 80-4.5 MCG INHALER INHALATION SCH ×2 (08:08→20:27)
[2017-09-27] MEDS: IPRATROPIUM 0.5 MG/2.5 ML NEBU INHALATION SCH ×4 (08:08→20:27)
[2017-09-27] MEDS: HEPARIN SODIUM,PORCINE 5,000 UNIT/ML 1 ML VIAL SQ SCH ×4 (08:53→22:00)
[2017-09-27] MEDS: METOPROLOL SUCCINATE (ER) 50 MG TAB.ER.24H PO SCH ×2 (08:54→20:59)
[2017-09-27] MEDS: LOSARTAN 25 MG TAB PO SCH (08:55)
[2017-09-27] MEDS: TRIAMTERENE-HCTZ 37.5-25MG 1 EACH TAB PO SCH (08:55)
[2017-09-27] MEDS: PANTOPRAZOLE 40 MG/10 ML VIAL IV SCH (08:55)
[2017-09-27] MEDS: amLODIPine 10 MG TAB PO SCH (08:56)
[2017-09-27] MEDS: RANOLAZINE 500 MG TAB.ER.12H PO SCH ×2 (08:56→20:59)
[2017-09-27] MEDS: GABAPENTIN 400 MG CAP PO SCH ×3 (08:57→20:59)
[2017-09-27] MEDS: MULTIVITAMINS, THERA 1 EACH TAB PO SCH (09:09)
[2017-09-27] MEDS: LORATADINE 10 MG TAB PO SCH (09:09)
[2017-09-27] MEDS: MAGNESIUM OXIDE 400 MG TAB PO SCH (09:09)
[2017-09-27] MEDS: CALCIUM CARBONATE 500 MG CHEWABLE PO SCH (09:09)
--- NOTE | 2017-09-27 11:56 | PN ---
PROGRESS NOTE DATE OF SERVICE: September 27, 2017 Patient is a 72-year-old pleasant white female admitted to the hospital with acute abdominal pain and right upper quadrant abdominal pain, noted to have gallstones and elevated LFTs and jaundice. She underwent an ERCP yesterday and was noted to have a dilated CBD with stones and sludge in the CBD for which she underwent biliary sphincterotomy and balloon stone extraction. This morning, she is feeling better. She is scheduled for a laparoscopic cholecystectomy today. PHYSICAL EXAMINATION: Appears comfortable, in no apparent distress. VITAL SIGNS: Stable. Blood pressure 121/63, pulse rate 63, temperature 98. HEENT: Unremarkable. Conjunctivae are pink. Sclerae anicteric. Oral cavity: No lesions. NECK: No JVD or lymph node enlargement. CHEST: Clear to auscultation. HEART: Regular rate and rhythm. ABDOMEN: Soft. Bowel sounds are positive. Mild tenderness in the epigastric area. EXTREMITIES: No pedal edema. SKIN: No rashes. NEURO: Alert and oriented x3. No focal deficits. LABS: From today: WBC 5.1, hemoglobin 11.3 and platelets normal. AST is down to 150, ALT is down to 331, T-bili is down to 3.6. IMPRESSION: Symptomatic cholelithiasis and choledocholithiasis, status post endoscopic retrograde cholangiopancreatography with biliary sphincterotomy and balloon stone extraction yesterday. Patient feeling much better. She is scheduled for laparoscopic cholecystectomy today. RECOMMENDATIONS: 1. Continue with IV antibiotics. 2. Repeat labs in the morning. 3. Will sign off at this time. Thank you for this consultation. MMODL / IJN: [id number] /
--- NOTE | 2017-09-27 12:28 | FL ---
EXAMINATION TYPE: FL ERCP biliary duct only DATE OF EXAM: 09/26/2017 COMPARISON: NONE HISTORY: Common bile duct stones Fluoroscopy support supplied to the referring clinician. See dictated report from gastroenterology, 42 seconds fluoroscopy time, 1 intraoperative C-arm image documents the procedure
[2017-09-27] MEDS ORDERED: SUCCINYLCHOLINE CHLORIDE 100 MG/5 ML SYR IV ONE (14:38)
[2017-09-27] MEDS ORDERED: NEOSTIGMINE 1 MG/ML 10 ML VIAL ONE (14:38)
[2017-09-27] MEDS ORDERED: ONDANSETRON 4 MG/2 ML VIAL ONE (14:38)
[2017-09-27] MEDS ORDERED: fentaNYL (PF) 50 MCG/ML 2 ML AMP ONE (14:38)
[2017-09-27] MEDS ORDERED: MIDAZOLAM 2 MG/2 ML VIAL ONE (14:38)
[2017-09-27] MEDS ORDERED: PROPOFOL 10 MG/ML 20 ML VIAL IV ONE (14:38)
[2017-09-27] MEDS ORDERED: SODIUM CHLORIDE 0.9% 800 ML IV ONE (14:38)
[2017-09-27] MEDS ORDERED: ROCURONIUM BROMIDE 10 MG/ML 10 ML VIAL IV ONE (14:38)
[2017-09-27] MEDS ORDERED: GLYCOPYRROLATE 0.2 MG/ML 2 ML VIAL ONE (14:38)
[2017-09-27] MEDS ORDERED: LIDOCAINE 1% INJ 10MG/ML (20 ML MDV) ONE (14:38)
[2017-09-27] MEDS ORDERED: BUPIVACAINE (PF) 0.25% 30 ML VIAL SQ ONE ×2 (15:03)
[2017-09-27] MEDS ORDERED: LACTATED RINGERS 1,000 ML IV ONE (15:48)
--- NOTE | 2017-09-27 16:07 | P.OP ---
Date of Procedure: 09/27/17 Preoperative Diagnosis: Cholelithiasis chronic cholecystitis Postoperative Diagnosis: Acute cholecystitis cholelithiasis Procedure(s) Performed: Laparoscopic cholecystectomy Anesthesia: SERENA Surgeon: Ruben Toro Estimated Blood Loss (ml): 20 Pathology: other (Gallbladder) Condition: stable Disposition: PACU Indications for Procedure: The patient was admitted with the upper abdominal and right the lower chest pain. Workup revealed gallbladder wall thickening with sludge. Bilirubin went up to 4. ERCP was performed revealing multiple filling defects in the common bile duct that were evacuated and sphincterotomy performed. Laparoscopic cholecystectomy possible open was then recommended and informed consent was obtained procedure having been explained to her including potential complication particular bleeding infection surrounding injury cardiac respiratory and wound problems etc. she understood and agree to proceed. Operative Findings: Severe acute cholecystitis cholelithiasis Description of Procedure: After induction of general endotracheal anesthesia the abdominal wall was prepped with Betadine and draped. Local anesthetic Marcaine 0.5% with epinephrine was infiltrated into the skin and subcutaneous tissue just below the umbilicus where a transverse incision was made and deepened through the subcutaneous fat. The fascia was retracted and a Veress needle inserted under direct vision with a satisfactory saline drop test. The peritoneal cavity were then inflated with carbon dioxide to a pressure of approximately 15 mmHg. The needle was replaced with a 10 mm trocar and the laparoscope inserted. 25 mm trochars were placed in the right upper quadrant and another 5 mm trocar in the epigastrium under direct vision. Visual exploration revealed a acutely infected gallbladder with a markedly thickened wall markedly distended with tenderness exudate. The gallbladder had to be decompressed by urinary insertion of the needle were which was then used to aspirate the bilateral foot. The bile was greenish in color. The area of the neck were then carefully dissected cystic duct at its fibers and school he denies any junction with the gallbladder, duct well visualized. The cystic duct was then triply clipped and divided as was the cystic artery and a posterior branch. The gallbladder dissected from its bed and removed through the umbilical port site in an Endo Catch bag. Supra and infrahepatic spaces were thoroughly irrigated. Wheezing from the liver bed was controlled with electrocautery. The liver bed didn't subhepatic and suprahepatic spaces were thoroughly irrigated. Return was clear. The TROCHARS were then removed under direct vision. CO2 was evacuated. Fascial incision at the umbilicus was closed with interrupted 0 Vicryl sutures and the skin with 4-0 Monocryl subcuticular sutures and Steri-Strips. Dressings were applied. All counts were correct.
[2017-09-27] MEDS: HYDROmorphone 1 MG/ML 1 ML SYRINGE IVP ONE ×4 (16:20→16:34)
--- NOTE | 2017-09-27 17:47 | PN ---
PROGRESS NOTE DATE OF SERVICE: 09/27/2017 This 72-year-old woman is admitted with abdominal pain as well as acute cholecystitis. Patient also had choledocholithiasis. The patient had ERCP and extraction of multiple stones yesterday. The patient is being closely monitored. LFTs are still elevated. The patient is still complaining of abdominal pain. DVT prophylaxis, GI prophylaxis. PAST MEDICAL HISTORY: Reviewed. REVIEW OF SYSTEMS: CARDIOVASCULAR: No angina, palpitations. RESPIRATORY: As mentioned earlier. GI: As mentioned earlier. : No dysuria. NERVOUS: No numbness weakness. CURRENT MEDICATIONS: Reviewed, include: 1. Tylenol 650 every 6 hours p.r.n. 2. [place] 7.5 t.i.d. p.r.n. 3. Ventolin inhaler. 4. Xanax 0.5 b.i.d. 5. Norvasc 10 mg p.o. daily. 6. Dulcolax. 7. Symbicort 80/4.5. 8. Calcium carbonate. 9. Vitamin D3. 10.Neurontin 800 mg. 11.Dilaudid 1 mg q.3h p.r.n. 12.Synthroid 100 mcg p.o. daily. 13.Claritin. 14.Cozaar. 15.Magnesium oxide. 16.Toprol XL. 17.Singulair. 18.Narcan. 19.Zofran. 20.Protonix. 21.Zosyn 3.375 IV. 22.Ranexa. 23.Senokot-S. 24.Maxzide. 25.Ambien. PHYSICAL EXAM: Patient is alert, oriented x3. The pulse 67, the blood pressure is 121/63, respirations 16, temperature is 98 degrees, pulse ox 96% on room air. HEENT: Conjunctivae normal. Oral mucosa moist. NECK: No jugular venous distention. No carotid bruits. No lymph node enlargement. CARDIOVASCULAR: S1, S2 muffled. No S3. No S4. RESPIRATORY: Breath sounds diminished in the bases. A few scattered rhonchi. No crackles. ABDOMEN: Soft. Mild diffuse tenderness in the right upper quadrant. No guarding. No rigidity. No mass palpable. Bowel sounds present. Stomach is minimally distended. LEGS: No edema. No swelling. NERVOUS SYSTEM: Higher functions as mentioned. Moves all 4 limbs. No focal deficits. LYMPHATIC: No lymphadenopathy in neck, axillae or groins. SKIN: No ulcer, rash or bleeding. LAB STUDIES: WBC 5.8, hemoglobin is 11.3. LFTs are AST 150, ALT 331 compared to the previous values. ASSESSMENT: 1. Acute cholecystitis, possibly with choledocholithiasis, status post endoscopic retrograde cholangiopancreatography and stone extraction. 2. Elevated LFTs, possibly relating to choledocholithiasis. 3. History of asthma. 4. Hypertension. 5. Hyperlipidemia. 6. History of neuropathy. 7. Irritable bowel syndrome. 8. History of back pain, degenerative joint disease. RECOMMENDATIONS AND DISCUSSION: At this time, I recommend to continue current medical management, continue monitoring and symptomatic treatment. Otherwise, continue with the symptomatic treatment pain medications and surgical evaluation, possibly surgery. Repeat labs will be ordered. Guarded prognosis. Further recommendations to follow. MMEVERL / CAREYN: [id number] /
[2017-09-27] MEDS: ALBUTEROL NEBULIZED 2.5 MG/3 ML INHALATION PRN (20:27)
[2017-09-27] MEDS: ZOLPIDEM 10 MG TAB PO SCH (20:55)
[2017-09-27] MEDS: CHOLECALCIFEROL 1,000 UNIT TAB PO SCH (20:59)
[2017-09-27] MEDS: MONTELUKAST 10 MG TAB PO SCH (20:59)
[2017-09-27] MEDS: ONDANSETRON 4 MG/2 ML VIAL IVP PRN (21:13)
[2017-09-28] MEDS: HYDROmorphone 1 MG/ML 1 ML SYRINGE IVP PRN ×5 (03:46→22:28)
[2017-09-28] MEDS: HYDROcodone/APAP 7.5-325MG 1 EACH TAB PO PRN ×3 (05:19→20:02)
[2017-09-28] MEDS: HEPARIN SODIUM,PORCINE 5,000 UNIT/ML 1 ML VIAL SQ SCH ×3 (05:25→20:03)
[2017-09-28] MEDS: SODIUM CHLORIDE 0.9% 1,000 ML IV SCH ×3 (06:45→12:13)
[2017-09-28] MEDS: PIPERACILLIN-TAZOBACTAM 3.375 GM in DEXTROSE/WATER 1 50ML.BAG IVPB SCH ×3 (06:48→20:03)
[2017-09-28] MEDS: LEVOTHYROXINE 100 MCG TAB PO SCH (06:51)
[2017-09-28 07:34] LABS: Basophils % (A) 0 %; CH 31.5; CHCM 33.7; Eosinophils # (A) 0.2 k/uL (0-0.7); Eosinophils % (A) 3 %; HCT 34.8 % (34.0-46.0); HDW 3.43; HGB 11.3 gm/dL (11.4-16.0); Luc # (Auto) 0.12; Luc % (Auto) 2; Lymphocytes # (A) 1.2 k/uL (1.0-4.8); Lymphocytes % (A) 18 %; MCH 30.4 pg (25.0-35.0); MCHC 32.4 g/dL (31.0-37.0); Mean Platelet Volume 7.9; Monocytes # (A) 0.5 k/uL (0-1.0); Monocytes % (A) 8 %; Neutrophils # (A) 4.6 k/uL (1.3-7.7); Neutrophils % (A) 69 %; Poikilocytosis Slight; RBC 3.71 m/uL (3.80-5.40); RDW 12.5 % (11.5-15.5); WBC 6.6 k/uL (3.8-10.6); WBC (Perox) 6.87
[2017-09-28] MEDS: PANTOPRAZOLE 40 MG/10 ML VIAL IV SCH (07:40)
[2017-09-28] MEDS: GABAPENTIN 400 MG CAP PO SCH ×3 (07:40→21:47)
[2017-09-28] MEDS: METOPROLOL SUCCINATE (ER) 50 MG TAB.ER.24H PO SCH ×2 (07:40→20:03)
[2017-09-28] MEDS: amLODIPine 10 MG TAB PO SCH (07:41)
[2017-09-28] MEDS: CALCIUM CARBONATE 500 MG CHEWABLE PO SCH (07:42)
[2017-09-28] MEDS: LOSARTAN 25 MG TAB PO SCH (07:42)
[2017-09-28] MEDS: TRIAMTERENE-HCTZ 37.5-25MG 1 EACH TAB PO SCH (07:42)
[2017-09-28] MEDS: RANOLAZINE 500 MG TAB.ER.12H PO SCH ×2 (07:42→20:03)
[2017-09-28] MEDS: LORATADINE 10 MG TAB PO SCH (07:42)
[2017-09-28] MEDS: MONTELUKAST 10 MG TAB PO SCH (07:42)
[2017-09-28] MEDS: MULTIVITAMINS, THERA 1 EACH TAB PO SCH (07:43)
[2017-09-28] MEDS: MAGNESIUM OXIDE 400 MG TAB PO SCH (07:43)
[2017-09-28] MEDS: CHOLECALCIFEROL 1,000 UNIT TAB PO SCH (07:43)
[2017-09-28 07:53] LABS: ALT 254 U/L (9-52); AST 117 U/L (14-36); Alkaline Phosphatase 157 U/L (38-126); Anion Gap 6 mmol/L; Blood Urea Nitrogen 5 mg/dL (7-17); Calcium 8.6 mg/dL (8.4-10.2); Carbon Dioxide 26 mmol/L (22-30); Chloride 106 mmol/L (98-107); Glucose 102 mg/dL (74-99); Non-African American GFR(MDRD) >60 (>60 ml/min/1.73 sqM); Potassium 3.6 mmol/L (3.5-5.1); Sodium 138 mmol/L (137-145); Total Bilirubin 1.4 mg/dL (0.2-1.3); Total Protein 5.4 g/dL (6.3-8.2)
[2017-09-28] MEDS: IPRATROPIUM 0.5 MG/2.5 ML NEBU INHALATION SCH ×4 (08:34→21:12)
[2017-09-28] MEDS: SYMBICORT 80-4.5 MCG INHALER INHALATION SCH ×2 (08:34→21:11)
--- NOTE | 2017-09-28 10:18 | PN ---
PROGRESS NOTE The patient is a 72-year-old pleasant white female admitted to the hospital with abdominal pain, symptomatic gallstones and jaundice. She had ERCP done 2 days ago with biliary sphincterotomy and stone extraction. She is status post laparoscopic cholecystectomy by Dr. Toro yesterday. She is feeling much better today. She denies any complaints. She has some pain in the site of surgery. PHYSICAL EXAMINATION: Blood pressure 129/68, pulse is 78, temperature 98.6. HEENT examination unremarkable. Conjunctivae pink. Sclerae anicteric. Oral cavity, no lesions. NECK: No JVD or lymph node enlargement. CHEST: Clear to auscultation. HEART: Regular rate and rhythm. ABDOMEN: Soft. Bowel sounds are positive. Mild tenderness in the right upper quadrant area. EXTREMITIES: No pedal edema. SKIN: No rashes. NEUROLOGIC: Alert and oriented x3. No focal deficits. LAB DATA: Today, bilirubin is down to 1.4, AST is down to 117, ALT is 254, alkaline phosphatase 157. CBC is normal. IMPRESSION: Symptomatic gallstones and choledocholithiasis status post ERCP with biliary sphincterotomy and balloon stone extraction two days ago and laparoscopic cholecystectomy yesterday by Dr. Toro. Serum transaminases improving. Bili has significantly dropped to 1.4. RECOMMENDATION: 1. Continue with broad-spectrum antibiotics. 2. Continue with current diet. 3. Will sign off at this time. Please call if needed. Thank you for this consultation. MMODL / IJN: [id number] /
--- NOTE | 2017-09-28 10:45 | P.PN ---
Progress Note - Text Progress Note Date: 09/28/17 The patient had a little more discomfort this morning but feels better now. She tolerated a soft breakfast diet the no nausea or vomiting. Did did have a question of positive blood culture with the gram-positive cocci. On examination she is awake alert afebrile. Vitals are stable. She is in no distress. Abdomen is quite soft with mild tenderness. Incisions look fine. Wbc's normal. Liver enzymes are improved and bilirubin is close to normal. Impression doing fairly well status post laparoscopic cholecystectomy for severe acute cholecystitis and ERCP for choledocholithiasis and the common bile duct obstruction. Positive blood cultures I'm not sure of disease contamination since she didn't seems to be doing clinically very well. Recommendation we will observe another day. Hopefully discharge in the next day or so on by mouth antibiotics.
--- NOTE | 2017-09-28 12:06 | XR ---
EXAMINATION TYPE: XR chest 1V portable DATE OF EXAM: 09/28/2017 HISTORY: cough. REFERENCE: Previous study dated 09/05/2017. FINDINGS: There is chronic, appearing elevation of the right hemidiaphragm. Lungs are clear. Pleural space are clear. The heart is not enlarged. IMPRESSION: NO ACUTE INTRATHORACIC ABNORMALITY.
--- NOTE | 2017-09-28 17:20 | PN ---
PROGRESS NOTE . DATE OF SERVICE: 09/28/2017 This 72-year-old woman who was admitted with abdominal pain and features of acute cholecystitis and cholelithiasis underwent ERCP with biliary sphincterotomy and a balloon stone extraction. The patient underwent laparoscopic cholecystectomy yesterday by Dr. Toro. The transaminase is improving at this time, but however, most recent reports indicated the blood culture done on 09/26 showed gram-positive cocci in clusters. The patient is on IV Zosyn. PAST MEDICAL HISTORY: Reviewed. REVIEW OF SYSTEMS: Cardiovascular: No angina or palpitations. Respiratory: As mentioned earlier. GI: As mentioned earlier. : No dysuria or hematuria. Central nervous system: No numbness or weakness. CURRENT MEDICATIONS: Reviewed and include: 1. Tylenol 650 q.6 p.r.n. 2. [place] 7.5 t.i.d. p.r.n. 3. Xanax 0.5 t.i.d. 4. Norvasc 10 mg. 5. Symbicort 80/4.5 two puffs b.i.d. 6. Tums with vitamin D3 5000 daily. 7. Neurontin 800 mg t.i.d. 8. Heparin 5000 mg subcu b.i.d. 9. Dilaudid 1 mg q.3h p.r.n. 10.Synthroid 100 mcg p.o. daily. 11.Cozaar. 12.Magnesium oxide 800 mg daily. 13.Toprol-XL 50 mg p.o. b.i.d. 14.Zosyn 3.65 IV q.8h. 15.Zofran p.r.n. 16.Protonix b.i.d. daily. 17.Maxzide. 18.Ambien. PHYSICAL EXAM: Patient is alert, oriented x3, pulse 77, blood pressure 120/60, respirations 16, temperature 98.8, pulse ox 94% on room air. HEENT: Conjunctivae normal. Oral mucosa moist. Neck: No jugular venous distention. No carotid bruit. No lymph node enlargement. CARDIOVASCULAR: S1, S2 muffled. No S3, no S4. RESPIRATORY: Breath sounds diminished in the bases. A few scattered rhonchi and crackles. A few rhonchi in the bases. ABDOMEN: Soft. Status post surgery. Legs no edema and no swelling. Central nervous system: Higher functions as mentioned earlier. Moves all four limbs. No focal deficits. Lymphatics: No lymph nodes palpable in the neck, axillae or groin. Skin no ulcer, rash or bleeding. LAB STUDIES: At this time shows WBC 6.7, hemoglobin 7.7, AST, ALT noted. ASSESSMENT: 1. Acute cholecystitis with possibly choledocholithiasis status post ERCP and stone extraction with possible sepsis. 2. Gram-positive cocci from the blood cultures two out of two. 3. Elevated LFTs, possibly choledocholithiasis. 4. History of asthma. 5. Hypertension. 6. Hyperlipidemia. 7. History of neuropathy. 8. Irritable bowel syndrome. 9. History of back pain and degenerative joint disease. RECOMMENDATIONS AND DISCUSSION: This 72-year-old woman who presented with multiple complex medical issues, we will monitor the patient closely, continue the current management and continue symptomatic treatment. We will keep monitoring the LFTs. Amylase and lipase is okay. I will obtain the final blood cultures. The patient is also already on IV Zosyn. I will also obtain Infectious Disease recommendation. Continue the rest of medications. Monitor renal functions. Further recommendations to follow. See orders for further details. MMODL / IJN: [id number] /
--- NOTE | 2017-09-28 20:15 | CONS ---
CONSULTATION DATE OF SERVICE: 09/28/2017. REASON FOR CONSULTATION: Sepsis. HISTORY OF PRESENT ILLNESS: The patient is a 72 -year-old female who has been brought into the ER for evaluation of pain in the right flank area that has been radiating to the right lower quadrant and abdominal area. The pain has been going on for about a day prior to presentation to hospital. The pain described to be severe almost 10/10 with episodes of vomiting but no significant diarrhea. With these symptoms, the patient was evaluated by the ER physician. The patient did have a CT abdominal and pelvis which did show dilated gallbladder is dilated to 15 cm with wall thickening consistent with acute cholecystitis. The patient did have an ultrasound of the gallbladder area which shows findings in the gallbladder with distended margin, suspect internal sludge versus small stones and mild gallbladder wall thickening. The patient on admission with no fever or elevated white count, however, liver enzymes are elevated though has subsequently came down. The patient did have acute hepatitis panel was negative. Urine has been negative. The patient was subsequently taken to the OR with the patient did have laparoscopic cholecystectomy. The patient has been treated with broad- spectrum antibiotic in the form of Zosyn. ID was consulted for further recommendation regarding antibiotic therapy. The patient did have blood cultures obtained on admission negative so far. The gallbladder aspirate is currently pending. REVIEW OF SYSTEMS: Constitutional: Positive for weakness. Eyes no complaint. ENT no complaint. Respiratory no complaint. Cardiovascular no complaint. Genitourinary: No complaint. Gastrointestinal: as per HPI. Musculoskeletal no complaint. Integumentary no complaint. PSYCHOLOGICAL: No complaint. Endocrine no complaint. Neurological no complaint. PAST MEDICAL HISTORY: Significant for hypertension, hyperlipidemia, asthma, with recent right leg fracture. PAST SURGICAL HISTORY: Appendectomy, back surgery, hysterectomy, tonsillectomy. SOCIAL HISTORY: Remote history of smoking. No drinking or drug use. FAMILY HISTORY: Mother with history of CVA/TIA. at age of 99. Father history of HI, at age of 73. ALLERGIES: TO HYDROMORPHONE, LEVOFLOXACIN, MOXIFLOXACIN, NITROFURANTOIN. MEDICATION: Medications include the patient currently on Ambien, Maxzide, Senokot, Nexium, Piptazobactam, Protonix, Zofran, Narcan, Theragran, Singulair, Toprol-XL, Mag oxide, Cozaar, Claritin, Synthroid, heparin, Neurontin, TUMS, Dulcolax, Xanax. EXAMINATION: Blood pressure is 110/56 with a pulse of 77, temperature 98.8. She is 95% on room air. General description is an elderly female, lying in bed in no distress. No tachypnea or accessory muscle of respiration use. HEENT: Shows slight pallor. No scleral icterus. Oral mucosa membranes is dry. Neck: Trachea central. No thyromegaly. Lungs unlabored breathing. Clear to auscultation anteriorly. No wheeze or crackles. Heart S1, S2. Regular rate and rhythm. ABDOMEN: Soft, mildly tender. Right upper quadrant area. No guarding. No rigidity. No organomegaly. Extremities are no edema of the feet. Skin examination: No rash or mass palpable. Neurological: Patient is awake, alert, oriented times three. Mood and affect normal. LABS: Hemoglobin 11.2, white count 6.6, BUN of 5, creatinine 0.60. Electrolytes have been normal. Liver enzymes have improved and amylase and lipase were normal on admission. DIAGNOSTIC IMPRESSION AND PLAN: 1. Patient admitted to the hospital with severe abdominal pain. The patient did have evidence of acute cholecystitis. Did have elevated liver enzymes, possibly leading a passage of a gallstone with positive elevated liver enzymes that seems to be slowly going down in a patient who is status post laparoscopic appendectomy. She was noticed to have an acutely inflamed gallbladder with marked thickened wall with tenderness exudate. The likely organism to cover will be the enteric gram- negative, aerobes more likely and less likely anaerobes. 2. Patient does have MULTIPLE ANTIBIOTIC ALLERGIES that do limit number of antibiotics that could be safely used. PLAN: 1. We will keep the patient on Zosyn 3.375 g IV piggyback q.8 hours. 2. Gentle IV fluid. 3. Depending upon the clinical response as well as cultures will determine her discharge antibiotic. Thank you for this consultation. Will follow this patient along with you. MMODL / IJN: [id number] /
[2017-09-28] MEDS: ALBUTEROL NEBULIZED 2.5 MG/3 ML INHALATION PRN (21:11)
[2017-09-28] MEDS: ZOLPIDEM 10 MG TAB PO SCH (21:48)
[2017-09-29] MEDS: SODIUM CHLORIDE 0.9% 1,000 ML IV SCH ×4 (02:04→22:38)
[2017-09-29] MEDS: PIPERACILLIN-TAZOBACTAM 3.375 GM in DEXTROSE/WATER 1 50ML.BAG IVPB SCH ×3 (03:31→20:14)
[2017-09-29] MEDS: HYDROmorphone 1 MG/ML 1 ML SYRINGE IVP PRN (03:34)
[2017-09-29] MEDS: LEVOTHYROXINE 100 MCG TAB PO SCH (05:24)
[2017-09-29] MEDS: HYDROcodone/APAP 7.5-325MG 1 EACH TAB PO PRN ×3 (05:51→19:30)
[2017-09-29 07:01] LABS: Basophils % (A) 1 %; CH 30.8; CHCM 32.6; Eosinophils # (A) 0.3 k/uL (0-0.7); Eosinophils % (A) 6 %; HCT 34.7 % (34.0-46.0); HDW 3.16; HGB 11.1 gm/dL (11.4-16.0); Luc # (Auto) 0.12; Luc % (Auto) 3; Lymphocytes # (A) 1.4 k/uL (1.0-4.8); Lymphocytes % (A) 30 %; MCH 30.4 pg (25.0-35.0); Mean Platelet Volume 8.9; Monocytes # (A) 0.5 k/uL (0-1.0); Monocytes % (A) 11 %; Neutrophils # (A) 2.3 k/uL (1.3-7.7); Neutrophils % (A) 49 %; RBC 3.65 m/uL (3.80-5.40); RDW 13.4 % (11.5-15.5); WBC 4.6 k/uL (3.8-10.6); WBC (Perox) 4.52
[2017-09-29 07:13] LABS: ALT 182 U/L (9-52); AST 69 U/L (14-36); Alkaline Phosphatase 132 U/L (38-126); Anion Gap 7 mmol/L; Blood Urea Nitrogen 14 mg/dL (7-17); Calcium 8.7 mg/dL (8.4-10.2); Carbon Dioxide 27 mmol/L (22-30); Chloride 106 mmol/L (98-107); Glucose 112 mg/dL (74-99); Non-African American GFR(MDRD) >60 (>60 ml/min/1.73 sqM); Potassium 3.6 mmol/L (3.5-5.1); Sodium 140 mmol/L (137-145); Total Bilirubin 0.8 mg/dL (0.2-1.3); Total Protein 5.5 g/dL (6.3-8.2)
[2017-09-29] MEDS: IPRATROPIUM 0.5 MG/2.5 ML NEBU INHALATION SCH ×4 (08:55→20:11)
[2017-09-29] MEDS: PANTOPRAZOLE 40 MG/10 ML VIAL IV SCH (08:56)
[2017-09-29] MEDS: SYMBICORT 80-4.5 MCG INHALER INHALATION SCH ×2 (08:56→20:11)
[2017-09-29] MEDS: HEPARIN SODIUM,PORCINE 5,000 UNIT/ML 1 ML VIAL SQ SCH ×2 (08:57→20:14)
[2017-09-29] MEDS: TRIAMTERENE-HCTZ 37.5-25MG 1 EACH TAB PO SCH (08:57)
[2017-09-29] MEDS: GABAPENTIN 400 MG CAP PO SCH ×3 (08:57→21:06)
[2017-09-29] MEDS: RANOLAZINE 500 MG TAB.ER.12H PO SCH ×2 (08:57→20:14)
[2017-09-29] MEDS: LORATADINE 10 MG TAB PO SCH (08:58)
[2017-09-29] MEDS: amLODIPine 10 MG TAB PO SCH (08:58)
[2017-09-29] MEDS: CALCIUM CARBONATE 500 MG CHEWABLE PO SCH (08:58)
[2017-09-29] MEDS: METOPROLOL SUCCINATE (ER) 50 MG TAB.ER.24H PO SCH ×2 (08:59→20:14)
[2017-09-29] MEDS: MAGNESIUM OXIDE 400 MG TAB PO SCH (09:06)
[2017-09-29] MEDS: LOSARTAN 25 MG TAB PO SCH (09:06)
--- NOTE | 2017-09-29 10:10 | P.PN ---
Progress Note - Text Progress Note Date: 09/29/17 The patient is doing well from a surgical standpoint in that she is tolerating a diet minimal abdominal discomfort. However she's had positive blood cultures which ID is seeing her for. Also some urinary retention. She is passing small amounts of urine but has had to be straight catheter several times. On examination she is awake alert in no distress. Temperature is normal. Vitals are good. Abdomen is completely soft and benign without any significant tenderness. Trocar sites are clean. Impression stable. Some urinary retention. Positive blood cultures. Recommendation continued medical management. From a surgical standpoint she can be discharged at any time back to rehab but watch her urine output.
[2017-09-29] MEDS: MULTIVITAMINS, THERA 1 EACH TAB PO SCH (12:05)
--- NOTE | 2017-09-29 12:18 | PN ---
PROGRESS NOTE DATE OF SERVICE: 09/29/2017. REASON FOR FOLLOWUP: 1. Acute cholecystitis. 2. Positive blood culture. INTERVAL HISTORY: The patient is afebrile. She is breathing comfortably. Her abdominal pain is currently improved. No nausea, no vomiting. No diarrhea. EXAMINATION: Blood pressure 129/74 with a pulse of 68, temperature 98.8. She is 95%. General description is an elderly female, lying in bed in no distress. Respiratory system unlabored breathing. Clear to auscultation anteriorly. Heart S1, S2 regular rate and rhythm. Abdomen soft, no tenderness. LABS: Hemoglobin 11.1, white count 4.6 with a BUN of 14, creatinine 0.67, liver enzymes have improved. Blood culture with micrococcus species. Blood culture currently pending. The gallbladder aspiration fluid so far negative. DIAGNOSTIC IMPRESSION AND PLAN: 1. Patient with acute cholecystitis for which the patient currently on Zosyn that will be continued. Waiting for the gallbladder aspirate to finalize to determine her discharge antibiotics. 2. Patient with a positive blood culture, could be more likely skin contamination. We are waiting for the repeat blood culture to finalize. If negative no need for further workup. MMODL / IJN: [id number] / [place]
--- NOTE | 2017-09-29 15:28 | PN ---
PROGRESS NOTE DATE OF SERVICE: 09/29/2017 INTERVAL HISTORY: This 72-year-old woman who was admitted with acute cholecystitis and underwent cholecystectomy. The patient had gram-positive bacteremia and sepsis and the culture showed micrococcus species. The patient on broad IV antibiotics. Infectious disease is following the patient. No chest pain. No palpitations. No fever. ECF rehab is being planned. PHYSICAL EXAM: Alert and oriented times three. Pulse 68, blood pressure 129/74, respiration 14, temperature 98.8, pulse ox 94% on room air. General description: HEENT: Conjunctivae normal. Cardiovascular: S1, S2 muffled. Respiratory: Breath sounds diminished in the bases. A few scattered rhonchi. ABDOMEN: Soft, status post surgery. Legs: Boot on the right leg. Central nervous system: No focal deficits. LABS: WBC 4.2, hemoglobin 11.1 otherwise AST 69 and bilirubin 0.8. Other labs are much improving. ASSESSMENT: 1. Acute cholecystis with possible sepsis with choledocholithiasis status post ERCP, stone extraction. 2. Micro cocci from the blood culture. 3. Status post laparoscopic cholecystectomy. 4. Elevated LFTs, possibly choledocholithiasis. 5. History of asthma. 6. Hypertension. 7. Hyperlipidemia. 8. Neuropathy. 9. History of irritable bowel syndrome. 10.History of back pain and degenerative joint disease. 11.History of recent right ankle injury. 12.Gait dysfunction. RECOMMENDATIONS AND DISCUSSION: In this 72-year-old woman who was admitted with multiple medical issues at this time I will recommend to continue current management and symptomatic treatment. Otherwise continue the broad-spectrum IV antibiotics. Repeat cultures and possible ECF rehab. Continue rest of the medications. DVT prophylaxis. Repeat labs. Further recommendations to follow. MMODL / IJN: [id number] /
[2017-09-29] MEDS: ALPRAZolam 0.25 MG TAB PO PRN ×2 (15:40→21:16)
[2017-09-29] MEDS: BETHANECHOL 10 MG TAB PO PRN ×5 (17:55→22:37)
[2017-09-29] MEDS: CHOLECALCIFEROL 1,000 UNIT TAB PO SCH (20:14)
[2017-09-29] MEDS: MONTELUKAST 10 MG TAB PO SCH (20:14)
[2017-09-29] MEDS: ZOLPIDEM 10 MG TAB PO SCH (20:17)
[2017-09-30] MEDS: HYDROcodone/APAP 7.5-325MG 1 EACH TAB PO PRN ×3 (03:39→17:32)
[2017-09-30] MEDS: PIPERACILLIN-TAZOBACTAM 3.375 GM in DEXTROSE/WATER 1 50ML.BAG IVPB SCH ×3 (03:39→20:43)
[2017-09-30] MEDS: LEVOTHYROXINE 100 MCG TAB PO SCH (06:01)
[2017-09-30 07:10] VITALS: RESP 16
[2017-09-30 07:25] LABS: Basophils % (A) 1 %; CH 31.3; CHCM 33.5; Eosinophils # (A) 0.4 k/uL (0-0.7); Eosinophils % (A) 8 %; HCT 34.6 % (34.0-46.0); HDW 3.35; HGB 11.1 gm/dL (11.4-16.0); Luc # (Auto) 0.18; Luc % (Auto) 4; Lymphocytes # (A) 1.6 k/uL (1.0-4.8); Lymphocytes % (A) 36 %; MCH 30.4 pg (25.0-35.0); MCHC 32.2 g/dL (31.0-37.0); MCV 94.3 fL (80.0-100.0); Mean Platelet Volume 7.9; Monocytes # (A) 0.4 k/uL (0-1.0); Monocytes % (A) 9 %; Neutrophils # (A) 1.8 k/uL (1.3-7.7); Neutrophils % (A) 42 %; RBC 3.67 m/uL (3.80-5.40); RDW 12.5 % (11.5-15.5); WBC 4.3 k/uL (3.8-10.6); WBC (Perox) 4.55
[2017-09-30 08:05] LABS: ALT 146 U/L (9-52); AST 57 U/L (14-36); Alkaline Phosphatase 123 U/L (38-126); Anion Gap 7 mmol/L; Blood Urea Nitrogen 16 mg/dL (7-17); Calcium 9.4 mg/dL (8.4-10.2); Carbon Dioxide 27 mmol/L (22-30); Chloride 106 mmol/L (98-107); Glucose 106 mg/dL (74-99); Non-African American GFR(MDRD) >60 (>60 ml/min/1.73 sqM); Potassium 3.9 mmol/L (3.5-5.1); Sodium 140 mmol/L (137-145); Total Bilirubin 0.7 mg/dL (0.2-1.3); Total Protein 5.7 g/dL (6.3-8.2)
[2017-09-30] MEDS: IPRATROPIUM 0.5 MG/2.5 ML NEBU INHALATION SCH ×4 (08:48→21:41)
[2017-09-30] MEDS: SYMBICORT 80-4.5 MCG INHALER INHALATION SCH ×2 (08:49→21:41)
[2017-09-30] MEDS: RANOLAZINE 500 MG TAB.ER.12H PO SCH ×2 (09:04→20:55)
[2017-09-30] MEDS: MULTIVITAMINS, THERA 1 EACH TAB PO SCH (09:04)
[2017-09-30] MEDS: PANTOPRAZOLE 40 MG TABLET PO SCH (09:04)
[2017-09-30] MEDS: LOSARTAN 25 MG TAB PO SCH (09:05)
[2017-09-30] MEDS: CALCIUM CARBONATE 500 MG CHEWABLE PO SCH (09:05)
[2017-09-30] MEDS: HEPARIN SODIUM,PORCINE 5,000 UNIT/ML 1 ML VIAL SQ SCH ×2 (09:05→20:54)
[2017-09-30] MEDS: amLODIPine 10 MG TAB PO SCH (09:05)
[2017-09-30] MEDS: MAGNESIUM OXIDE 400 MG TAB PO SCH (09:06)
[2017-09-30] MEDS: GABAPENTIN 400 MG CAP PO SCH ×3 (09:06→21:33)
[2017-09-30] MEDS: LORATADINE 10 MG TAB PO SCH (09:06)
[2017-09-30] MEDS: TRIAMTERENE-HCTZ 37.5-25MG 1 EACH TAB PO SCH (09:06)
[2017-09-30] MEDS: METOPROLOL SUCCINATE (ER) 50 MG TAB.ER.24H PO SCH ×2 (09:06→20:54)
[2017-09-30] MEDS: SODIUM CHLORIDE 0.9% 1,000 ML IV SCH ×2 (09:46→16:00)
--- NOTE | 2017-09-30 13:23 | PN ---
PROGRESS NOTE DATE OF SERVICE: 09/30/2017. REASON FOR FOLLOWUP: 1. Acute cholecystitis. 2. Positive blood culture. INTERVAL HISTORY: The patient is afebrile. She is breathing comfortably. Denies any chest pain or shortness of breath, cough. No abdominal pain, nausea, or any diarrhea. EXAMINATION: Blood pressure 124/54 with a pulse of 61, temperature 97.9. She is 99% on room air. General description is an elderly female up in the bed in no distress. RESPIRATORY SYSTEM: Unlabored breathing. Clear to auscultation anteriorly. HEART: S1, S2. Regular rate and rhythm. ABDOMEN: Soft. LABS: Hemoglobin 11.1, white count 4.3 with a BUN of 16, creatinine 0.97. Liver enzymes have improved. So far gallbladder aspirate negative. Cultures were done after the patient was on antibiotic for about 3 or 4 days. Blood culture repeat negative. DIAGNOSTIC IMPRESSION AND PLAN: 1. Patient with positive blood culture with micrococcus species, likely a contaminant. Repeat blood cultures remain negative. 2. Patient with acute cholecystitis status post cholecystectomy. Patient will be given Augmentin 875 b.i.d. for about a week. Continue supportive care. MMODL / IJN: [id number] /
--- NOTE | 2017-09-30 13:23 | P.PN ---
Progress Note - Text Progress Note Date: 09/30/17 Patient is doing well. Tolerating a diet. Hardly any abdominal discomfort. Still having trouble with the voiding. Was just a straight catheter in about 900 amounts of flow urine was removed. Has a history of chronic urinary retention, especially after surgeries. On examination she is afebrile. Abdomen is very soft and benign and nontender now. The from a surgical standpoint patient can be discharged. May consider Flomax similar product to help with her urine situation. We'll see her back in the office in 2 weeks. Otherwise, activities as tolerated. Low Fat diet.
--- NOTE | 2017-09-30 14:17 | P.DS ---
Providers Date of admission: 09/25/17 02:12 Attending physician: Felicia St Consults: 09/25/17 03:30 Consult Physician Stat Consulting Provider: Felicia St Consult Reason/Comments: Acute Cholecystitis, Medical Mgmt Do you want consulting provider notified?: Yes, Notify in am 09/25/17 08:40 Consult Physician Routine Consulting Provider: Ruben Toro Consult Reason/Comments: dawood Do you want consulting provider notified?: Yes 09/28/17 10:22 Consult Physician Routine Consulting Provider: Anneliese Westbrook Consult Reason/Comments: sepsis Do you want consulting provider notified?: Yes Primary care physician: Physician Nonstaff Hospital Course: Patient was admitted for acute cholecystitis and cholelithiasis, patient underwent the laparoscopic cholecystectomy and patient underwent ERCP with stone removal. Patient will be discharged on Augmentin for cholecystitis and the patient has blood cultures positive which is a contamination with micrococcus. Patient is otherwise clinically doing well will be discharged today. PHYSICAL EXAMINATION: GENERAL: The patient is alert and oriented x3, not in any acute distress. Well developed, well nourished. HEENT: Pupils are round and equally reacting to light. EOMI. No scleral icterus. No conjunctival pallor. Normocephalic, atraumatic. No pharyngeal erythema. No thyromegaly. CARDIOVASCULAR: S1 and S2 present. No murmurs, rubs, or gallops. PULMONARY: Chest is clear to auscultation, no wheezing or crackles. ABDOMEN: Soft, nontender, nondistended, normoactive bowel sounds. No palpable organomegaly. MUSCULOSKELETAL: No joint swelling or deformity. EXTREMITIES: No cyanosis, clubbing, or pedal edema. NEUROLOGICAL: Gross neurological examination did not reveal any focal deficits. SKIN: No rashes. #1 acute cholecystitis #2 choledocholithiasis #3 positive blood cultures with micrococcus which is a contaminatio. for rest of the month multiple medical problems and chronic medical problems. Please refer to dictation from Dr. Alfaro from yesterday. Patient Condition at Discharge: Stable Plan - Discharge Summary New Discharge Prescriptions: New Amoxic-Pot Clav 875-125Mg [Augmentin 875-125] 1 tab PO Q12HR #16 tablet Bethanechol [Urecholine] 10 mg PO TID #30 tablet Discontinued Doxycycline Monohydrate [Monodox] 100 mg PO DAILY No Action Fish Oil/Dha/Epa [Fish Oil 1,200 mg Fish Oil] 1 cap PO DAILY Ubidecarenone [Co Q-10] 100 mg PO DAILY Multivitamins, Thera [Multivitamin (formulary)] 1 tab PO DAILY Albuterol Nebulized [Ventolin Nebulized] 2.5 mg INHALATION RT-Q4H PRN PRN Reason: Shortness Of Breath amLODIPine [Norvasc] 10 mg PO DAILY Triamterene/Hydrochlorothiazid [Triamterene-Hctz 37.5-25 mg Tb] 1 tab PO DAILY Ranolazine [Ranexa] 500 mg PO BID Metoprolol Succinate (ER) [Toprol XL] 50 mg PO BID Losartan Potassium [Cozaar] 25 mg PO DAILY Gabapentin [Neurontin] 800 mg PO TID ALPRAZolam [Xanax] 0.25 mg PO BID PRN PRN Reason: Anxiety Zolpidem [Ambien] 10 mg PO HS Tiotropium 18 Mcg/Puff [Spiriva] 1 cap INHALATION RT-DAILY Montelukast [Singulair] 10 mg PO HS Levothyroxine Sodium [Synthroid] 100 mcg PO DAILY Fluticasone Propionate [Flovent Hfa 44 mcg] 1 puff INHALATION RT-BID Albuterol Sulfate [Proair Hfa] 1 - 2 puff INHALATION RT-Q6H PRN PRN Reason: Shortness Of Breath Cholecalciferol [Vitamin D3] 5,000 unit PO HS Calcium Carbonate [Calcium] 600 mg PO DAILY Cetirizine HCl [Zyrtec] 10 mg PO DAILY Magnesium 800 mg PO DAILY Aspirin 325 mg PO BID #60 tab Psyllium Husk 100% [Metamucil Packet] 1 packet PO DAILY #7 packet Hydrocodone/Acetaminophen [[place] 7.5-325] 1 tab PO TID PRN PRN Reason: Pain HYDROcodone/APAP 7.5-325MG [[place] 7.5] 1 tab PO Q6HR Sennosides-Docusate Sodium [Senokot-S] 2 tab PO HS PRN PRN Reason: Constipation Fluticasone/Vilanterol [Breo Ellipta 100-25 Mcg Inhaler] 1 puff INHALATION RT -DAILY Discharge Medication List ALPRAZolam [Xanax] 0.25 mg PO BID PRN 09/05/17 [History] Albuterol Nebulized [Ventolin Nebulized] 2.5 mg INHALATION RT-Q4H PRN 09/05/17 [ History] Albuterol Sulfate [Proair Hfa] 1 - 2 puff INHALATION RT-Q6H PRN 09/05/17 [ History] Calcium Carbonate [Calcium] 600 mg PO DAILY 09/05/17 [History] Cetirizine HCl [Zyrtec] 10 mg PO DAILY 09/05/17 [History] Cholecalciferol [Vitamin D3] 5,000 unit PO HS 09/05/17 [History] Fish Oil/Dha/Epa [Fish Oil 1,200 mg Fish Oil] 1 cap PO DAILY 09/05/17 [History] Fluticasone Propionate [Flovent Hfa 44 mcg] 1 puff INHALATION RT-BID 09/05/17 [ History] Gabapentin [Neurontin] 800 mg PO TID 09/05/17 [History] Levothyroxine Sodium [Synthroid] 100 mcg PO DAILY 09/05/17 [History] Losartan Potassium [Cozaar] 25 mg PO DAILY 09/05/17 [History] Magnesium 800 mg PO DAILY 09/05/17 [History] Metoprolol Succinate (ER) [Toprol XL] 50 mg PO BID 09/05/17 [History] Montelukast [Singulair] 10 mg PO HS 09/05/17 [History] Multivitamins, Thera [Multivitamin (formulary)] 1 tab PO DAILY 09/05/17 [History ] Ranolazine [Ranexa] 500 mg PO BID 09/05/17 [History] Tiotropium 18 Mcg/Puff [Spiriva] 1 cap INHALATION RT-DAILY 09/05/17 [History] Triamterene/Hydrochlorothiazid [Triamterene-Hctz 37.5-25 mg Tb] 1 tab PO DAILY 09/05/17 [History] Ubidecarenone [Co Q-10] 100 mg PO DAILY 09/05/17 [History] Zolpidem [Ambien] 10 mg PO HS 09/05/17 [History] amLODIPine [Norvasc] 10 mg PO DAILY 09/05/17 [History] Aspirin 325 mg PO BID #60 tab 09/09/17 [Rx] Psyllium Husk 100% [Metamucil Packet] 1 packet PO DAILY #7 packet 09/09/17 [Rx] Fluticasone/Vilanterol [Breo Ellipta 100-25 Mcg Inhaler] 1 puff INHALATION RT- DAILY 09/25/17 [History] HYDROcodone/APAP 7.5-325MG [[place] 7.5] 1 tab PO Q6HR 09/25/17 [History] Hydrocodone/Acetaminophen [[place] 7.5-325] 1 tab PO TID PRN 09/25/17 [History] Sennosides-Docusate Sodium [Senokot-S] 2 tab PO HS PRN 09/25/17 [History] Amoxic-Pot Clav 875-125Mg [Augmentin 875-125] 1 tab PO Q12HR #16 tablet [Rx] Bethanechol [Urecholine] 10 mg PO TID #30 tablet 09/30/17 [Rx] Follow up Appointment(s)/Referral(s): Erick Zamarripa MD [STAFF PHYSICIAN] - 1 Week Nonstaff,Physician [Primary Care Provider] - 1-2 days Discharge Disposition: HOME SELF-CARE
[2017-09-30] MEDS: ALPRAZolam 0.25 MG TAB PO PRN ×2 (15:25→21:32)
[2017-09-30] MEDS: BETHANECHOL 10 MG TAB PO SCH ×2 (18:07→21:32)
[2017-09-30] MEDS: CHOLECALCIFEROL 1,000 UNIT TAB PO SCH (20:53)
[2017-09-30] MEDS: MONTELUKAST 10 MG TAB PO SCH (20:55)
[2017-09-30] MEDS: ZOLPIDEM 10 MG TAB PO SCH (21:32)
[2017-10-01] MEDS ORDERED: HYDROcodone/APAP 7.5-325MG 1 EACH TAB ONE (01:20)
[2017-10-01] MEDS: SODIUM CHLORIDE 0.9% 1,000 ML IV SCH ×2 (04:45→10:31)
[2017-10-01] MEDS: PIPERACILLIN-TAZOBACTAM 3.375 GM in DEXTROSE/WATER 1 50ML.BAG IVPB SCH ×2 (04:47→11:55)
[2017-10-01 06:39] LABS: Basophils % (A) 1 %; CH 31.3; CHCM 33.1; Eosinophils # (A) 0.4 k/uL (0-0.7); Eosinophils % (A) 8 %; HCT 36.2 % (34.0-46.0); HDW 3.28; HGB 11.4 gm/dL (11.4-16.0); Luc # (Auto) 0.18; Luc % (Auto) 3; Lymphocytes # (A) 1.7 k/uL (1.0-4.8); Lymphocytes % (A) 32 %; MCH 30.1 pg (25.0-35.0); MCHC 31.6 g/dL (31.0-37.0); MCV 95.2 fL (80.0-100.0); Mean Platelet Volume 8.1; Monocytes # (A) 0.4 k/uL (0-1.0); Monocytes % (A) 8 %; Neutrophils # (A) 2.5 k/uL (1.3-7.7); Neutrophils % (A) 48 %; RDW 12.6 % (11.5-15.5); WBC 5.2 k/uL (3.8-10.6); WBC (Perox) 5.42
[2017-10-01 06:53] LABS: ALT 125 U/L (9-52); AST 60 U/L (14-36); Alkaline Phosphatase 109 U/L (38-126); Anion Gap 7 mmol/L; Blood Urea Nitrogen 14 mg/dL (7-17); Calcium 9.4 mg/dL (8.4-10.2); Carbon Dioxide 27 mmol/L (22-30); Chloride 106 mmol/L (98-107); Glucose 101 mg/dL (74-99); Non-African American GFR(MDRD) >60 (>60 ml/min/1.73 sqM); Potassium 4.4 mmol/L (3.5-5.1); Sodium 140 mmol/L (137-145); Total Bilirubin 0.6 mg/dL (0.2-1.3); Total Protein 5.7 g/dL (6.3-8.2)
[2017-10-01 07:24] VITALS: BP 136/63; PULSE 65; TEMP 98.1
[2017-10-01] MEDS: LEVOTHYROXINE 100 MCG TAB PO SCH (07:25)
[2017-10-01] MEDS: HYDROcodone/APAP 7.5-325MG 1 EACH TAB PO PRN ×2 (07:26→14:30)
[2017-10-01] MEDS: IPRATROPIUM 0.5 MG/2.5 ML NEBU INHALATION SCH ×2 (08:30→13:34)
[2017-10-01] MEDS: SYMBICORT 80-4.5 MCG INHALER INHALATION SCH (08:30)
[2017-10-01] MEDS: LORATADINE 10 MG TAB PO SCH (09:10)
[2017-10-01] MEDS: BETHANECHOL 10 MG TAB PO SCH (09:10)
[2017-10-01] MEDS: amLODIPine 10 MG TAB PO SCH (09:10)
[2017-10-01] MEDS: CALCIUM CARBONATE 500 MG CHEWABLE PO SCH (09:10)
[2017-10-01] MEDS: METOPROLOL SUCCINATE (ER) 50 MG TAB.ER.24H PO SCH (09:10)
[2017-10-01] MEDS: GABAPENTIN 400 MG CAP PO SCH (09:10)
[2017-10-01] MEDS: PANTOPRAZOLE 40 MG TABLET PO SCH (09:10)
[2017-10-01] MEDS: MAGNESIUM OXIDE 400 MG TAB PO SCH (09:11)
[2017-10-01] MEDS: LOSARTAN 25 MG TAB PO SCH (09:11)
[2017-10-01] MEDS: RANOLAZINE 500 MG TAB.ER.12H PO SCH (09:11)
[2017-10-01] MEDS: HEPARIN SODIUM,PORCINE 5,000 UNIT/ML 1 ML VIAL SQ SCH (09:11)
[2017-10-01] MEDS: TRIAMTERENE-HCTZ 37.5-25MG 1 EACH TAB PO SCH (09:11)
[2017-10-01] MEDS: MULTIVITAMINS, THERA 1 EACH TAB PO SCH (11:54)
--- NOTE | 2017-10-01 12:26 | P.DS ---
Providers Date of admission: 09/25/17 02:12 Attending physician: Felicia St Consults: 09/25/17 03:30 Consult Physician Stat Consulting Provider: Felicia St Consult Reason/Comments: Acute Cholecystitis, Medical Mgmt Do you want consulting provider notified?: Yes, Notify in am 09/25/17 08:40 Consult Physician Routine Consulting Provider: Ruben Toro Consult Reason/Comments: dawood Do you want consulting provider notified?: Yes 09/28/17 10:22 Consult Physician Routine Consulting Provider: Anneliese Westbrook Consult Reason/Comments: sepsis Do you want consulting provider notified?: Yes Primary care physician: Physician Nonstaff Hospital Course: Patient was discharged yesterday but ended up staying in the hospital because of her insurance approval issues. Patient most probably be discharged today all the medication consolation was taken care of and please refer to my dictation of discharge summary from yesterday for further details patient was seen and examined today PHYSICAL EXAMINATION: GENERAL: The patient is alert and oriented x3, not in any acute distress. Well developed, well nourished. HEENT: Pupils are round and equally reacting to light. EOMI. No scleral icterus. No conjunctival pallor. Normocephalic, atraumatic. No pharyngeal erythema. No thyromegaly. CARDIOVASCULAR: S1 and S2 present. No murmurs, rubs, or gallops. PULMONARY: Chest is clear to auscultation, no wheezing or crackles. ABDOMEN: Soft, nontender, nondistended, normoactive bowel sounds. No palpable organomegaly. MUSCULOSKELETAL: No joint swelling or deformity. EXTREMITIES: Deferred to orthopedic surgery NEUROLOGICAL: Gross neurological examination did not reveal any focal deficits. SKIN: No rashes. Patient Condition at Discharge: Stable Plan - Discharge Summary New Discharge Prescriptions: New Amoxic-Pot Clav 875-125Mg [Augmentin 875-125] 1 tab PO Q12HR #16 tablet Bethanechol [Urecholine] 10 mg PO TID #30 tablet Continue Fish Oil/Dha/Epa [Fish Oil 1,200 mg Fish Oil] 1 cap PO DAILY Ubidecarenone [Co Q-10] 100 mg PO DAILY Multivitamins, Thera [Multivitamin (formulary)] 1 tab PO DAILY Albuterol Nebulized [Ventolin Nebulized] 2.5 mg INHALATION RT-Q4H PRN PRN Reason: Shortness Of Breath amLODIPine [Norvasc] 10 mg PO DAILY Triamterene/Hydrochlorothiazid [Triamterene-Hctz 37.5-25 mg Tb] 1 tab PO DAILY Ranolazine [Ranexa] 500 mg PO BID Metoprolol Succinate (ER) [Toprol XL] 50 mg PO BID Losartan Potassium [Cozaar] 25 mg PO DAILY Gabapentin [Neurontin] 800 mg PO TID Tiotropium 18 Mcg/Puff [Spiriva] 1 cap INHALATION RT-DAILY Montelukast [Singulair] 10 mg PO HS Levothyroxine Sodium [Synthroid] 100 mcg PO DAILY Fluticasone Propionate [Flovent Hfa 44 mcg] 1 puff INHALATION RT-BID Albuterol Sulfate [Proair Hfa] 1 - 2 puff INHALATION RT-Q6H PRN PRN Reason: Shortness Of Breath Cholecalciferol [Vitamin D3] 5,000 unit PO HS Calcium Carbonate [Calcium] 600 mg PO DAILY Cetirizine HCl [Zyrtec] 10 mg PO DAILY Magnesium 800 mg PO DAILY Aspirin 325 mg PO BID #60 tab Psyllium Husk 100% [Metamucil Packet] 1 packet PO DAILY #7 packet Sennosides-Docusate Sodium [Senokot-S] 2 tab PO HS PRN PRN Reason: Constipation Fluticasone/Vilanterol [Breo Ellipta 100-25 Mcg Inhaler] 1 puff INHALATION RT -DAILY ALPRAZolam [Xanax] 0.25 mg PO BID PRN #20 tablet PRN Reason: Anxiety Hydrocodone/Acetaminophen [[place] 7.5-325] 1 tab PO TID PRN #20 tablet PRN Reason: Pain Discontinued Doxycycline Monohydrate [Monodox] 100 mg PO DAILY Zolpidem [Ambien] 10 mg PO HS HYDROcodone/APAP 7.5-325MG [[place] 7.5] 1 tab PO Q6HR Discharge Medication List Albuterol Nebulized [Ventolin Nebulized] 2.5 mg INHALATION RT-Q4H PRN 09/05/17 [ History] Albuterol Sulfate [Proair Hfa] 1 - 2 puff INHALATION RT-Q6H PRN 09/05/17 [ History] Calcium Carbonate [Calcium] 600 mg PO DAILY 09/05/17 [History] Cetirizine HCl [Zyrtec] 10 mg PO DAILY 09/05/17 [History] Cholecalciferol [Vitamin D3] 5,000 unit PO HS 09/05/17 [History] Fish Oil/Dha/Epa [Fish Oil 1,200 mg Fish Oil] 1 cap PO DAILY 09/05/17 [History] Fluticasone Propionate [Flovent Hfa 44 mcg] 1 puff INHALATION RT-BID 09/05/17 [ History] Gabapentin [Neurontin] 800 mg PO TID 09/05/17 [History] Levothyroxine Sodium [Synthroid] 100 mcg PO DAILY 09/05/17 [History] Losartan Potassium [Cozaar] 25 mg PO DAILY 09/05/17 [History] Magnesium 800 mg PO DAILY 09/05/17 [History] Metoprolol Succinate (ER) [Toprol XL] 50 mg PO BID 09/05/17 [History] Montelukast [Singulair] 10 mg PO HS 09/05/17 [History] Multivitamins, Thera [Multivitamin (formulary)] 1 tab PO DAILY 09/05/17 [History ] Ranolazine [Ranexa] 500 mg PO BID 09/05/17 [History] Tiotropium 18 Mcg/Puff [Spiriva] 1 cap INHALATION RT-DAILY 09/05/17 [History] Triamterene/Hydrochlorothiazid [Triamterene-Hctz 37.5-25 mg Tb] 1 tab PO DAILY 09/05/17 [History] Ubidecarenone [Co Q-10] 100 mg PO DAILY 09/05/17 [History] amLODIPine [Norvasc] 10 mg PO DAILY 09/05/17 [History] Aspirin 325 mg PO BID #60 tab 09/09/17 [Rx] Psyllium Husk 100% [Metamucil Packet] 1 packet PO DAILY #7 packet 09/09/17 [Rx] Fluticasone/Vilanterol [Breo Ellipta 100-25 Mcg Inhaler] 1 puff INHALATION RT- DAILY 09/25/17 [History] Sennosides-Docusate Sodium [Senokot-S] 2 tab PO HS PRN 09/25/17 [History] Amoxic-Pot Clav 875-125Mg [Augmentin 875-125] 1 tab PO Q12HR #16 tablet [Rx] Bethanechol [Urecholine] 10 mg PO TID #30 tablet 09/30/17 [Rx] ALPRAZolam [Xanax] 0.25 mg PO BID PRN #20 tablet 10/01/17 [Rx] Hydrocodone/Acetaminophen [[place] 7.5-325] 1 tab PO TID PRN #20 tablet 10/01/17 [ Rx] Follow up Appointment(s)/Referral(s): Erick Zamarripa MD [STAFF PHYSICIAN] - 1 Week Ruben Toro MD [STAFF PHYSICIAN] - 2 Weeks Konstantintagavino,Physician [Primary Care Provider] - 1-2 days Discharge Disposition: TRANSFER TO SNF/ECF
[2017-10-01] MEDS: ALPRAZolam 0.25 MG TAB PO PRN (12:41)
--- NOTE | 2017-10-01 13:31 | CDI ---
In responding to this query, please exercise your independent professional judgment. The [facility] Coding Staff and Clinical Documentation Specialists appreciate your assistance in clarifying documentation, maintaining compliance with coding guidelines, accurately documenting patients condition and capturing severity of illness. The fact that a question is asked does not imply that any particular answer is desired or expected. Communication forms are a method of clarifying documentation and are not made part of the Legal Health Record. Thank you in advance for your clarification. Last Revision, February 2017 Sudheer Grimm [address] [place] [address] Documentation Clarification Form Date: 10/01/2017 1:09:00 PM From: Sil Hobbs RN, CCDS Admit Date: 09/25/2017 2:12:00 AM Patient Name: Arleen Tyler Visit Number: [id number] Dr. Man Pt. was admitted on 09/25, Sepsis is not documented until 09/28. Please clarify if it was POA, Ruled in or Out. History/Risk Factors: Admitted with acute cholecystitis Clinical Indicators: 09/30 D/C Summary: "Please see Dr. Alfrao's dictation from prior day" 09/29 Attending Progress note: "Acute cholecystitis with possible sepsis with choledocholithiasis status post ERCP, stone extraction." WBC/Left Shift: none Lactic acid: not done Blood cultures: 09/26 + for micrococcus species Vitals signs on admission: with-in normal limits entire stay Treatment: ERCP with sphicterotomy and stone extraction Lap Choley ID Consult: completed- micrococcus species likely contaminate Antibiotics: Zosyn IV Bolus: 1 L IVF Bolus In your professional opinion, please clarify if these findings signify one of the following conditions, whether the condition is POA, and cause, if known: Sepsis, ruled out Sepsis Severe Sepsis Septic Shock Unable to determine Other, please specify Present on Admission: Yes No * Identify the (suspected) organism * Link or clarify if there is associated (due to/with): - Organ failure - Shock SIRS Criteria: 2 or more of the following may indicate SIRS Temperature < 96.8F (36C) or > 101.0F (38C) Heart Rate > 90 bpm Respiratory Rate > 20 breaths/min or PaCO2 < 32 mmHg White Blood Cell Count > 12,000 or < 4,000 cells/mm3 or > 10% bands Lactate >2.0 mol/L (>4.0 is equivalent to septic shock) Please document in an addendum to your discharge summary in order to capture severity of illness and risk of mortality. Include clinical findings that support your diagnosis. FYI: Press F11 to launch patient chart. [place]
--- NOTE | 2017-10-01 14:57 | PN ---
PROGRESS NOTE DATE OF SERVICE: 10/01/2017 REASON FOR FOLLOWUP: 1. Acute cholecystitis. 2. Positive blood culture. INTERVAL HISTORY: The patient is afebrile. She is breathing comfortably. Currently waiting for placement and insurance approval. Denies any chest pain or shortness of breath. Complaint of symptom has been urinary retention. PHYSICAL EXAMINATION: Blood pressure 136/63 with a pulse of 65, temperature of 98.1. She is 96% on room air. General description is an elderly female, lying in bed in no distress. RESPIRATORY SYSTEM: Unlabored breathing, clear to auscultation anteriorly. HEART: S1, S2. Regular rate and rhythm. ABDOMEN: Soft, no tenderness. LABS: Hemoglobin is 11.4, white count 5.2 with a BUN of 14, creatinine 0.71. DIAGNOSTIC IMPRESSION AND PLAN: 1. Patient with positive blood culture, likely skin contamination, no need for further therapy for the same. 2. Patient with acute cholecystitis. Overall improvement with Zosyn. All blood and fluid were negative for any resistant pathogen. She will finish therapy with oral Augmentin with outpatient followup. MMODL / IJN: [id number] /
== END 2017-10-01 15:15 | DRG 419 ==
LOC: EC 00:58 → 3SUR 02:12
PROVIDERS: ADMIT Internal Medicine; ATTEND Internal Medicine
PROC: 0FC98ZZ Extirpation of Matter from Common Bile Duct, Via Natural or Artificial Opening Endoscopic (ICD-10-PCS; principal; 2017-09-26 07:30)
PROC: 0FT44ZZ Resection of Gallbladder, Percutaneous Endoscopic Approach (ICD-10-PCS; 2017-09-27)
DX: K80.66 Calculus of gallbladder and bile duct with acute and chronic cholecystitis without obstruction (principal); G62.9 Polyneuropathy, unspecified; E66.01 Morbid (severe) obesity due to excess calories; E78.5 Hyperlipidemia, unspecified; I10 Essential (primary) hypertension; J45.909 Unspecified asthma, uncomplicated; K57.30 Diverticulosis of large intestine without perforation or abscess without bleeding; K58.9 Irritable bowel syndrome, unspecified; R33.9 Retention of urine, unspecified; Z79.51 Long term (current) use of inhaled steroids; Z79.82 Long term (current) use of aspirin; Z79.899 Other long term (current) drug therapy; Z82.49 Family history of ischemic heart disease and other diseases of the circulatory system; Z83.3 Family history of diabetes mellitus; Z87.891 Personal history of nicotine dependence; Z88.1 Allergy status to other antibiotic agents; Z88.2 Allergy status to sulfonamides; Z88.5 Allergy status to narcotic agent; Z88.8 Allergy status to other drugs, medicaments and biological substances
CPT/HCPCS: 36415; 43262; 43277; 71010; 74177; 74328; 76705; 80053; 80074; 81003; 82150; 82248; 83690; 85025; 85027; 85610; 85730; 87040; 87070; 87075; 87086; 87205; 88304; 94640; 96361; 96365; 96375; 96376; 99285

== ENCOUNTER 2017-11-16 15:52 | Emergency (ER) | payer MEDICARE ==
[2017-11-16 16:01] VITALS: TEMP 99.8
--- NOTE | 2017-11-16 16:57 | ED ---
General Adult HPI - General Chief complaint: Urogenital Stated complaint: UTI Time Seen by Provider: 11/16/17 16:38 Source: patient, RN notes reviewed Mode of arrival: ambulatory Limitations: no limitations - History of Present Illness Initial comments: 72 yo female presents to the emergency department with a chief complaint of GI. Patient states just feels very tired and nauseous today. She states she's had a lot of dysuria frequency and urgency. She went to [facility] and was sent here after they told her she had a UTI. She was started the patient. She states she has noticed some fever at home. She does admit to a history of gallbladder surgery a few months ago. She states that she was concerned due to her continued symptoms and her soreness that she thought that she should be evaluated. Patient denies any recent fever, chills, shortness of breath, chest pain, back pain, abdominal pain, nausea vomiting, numbness or tingling, hematuria, constipation or diarrhea, headaches or visual changes, or any other current symptoms. - Related Data Home Medications Medication Instructions Recorded Confirmed Albuterol Nebulized [Ventolin 2.5 mg INHALATION RT-Q4H PRN 09/05/17 11/16/17 Nebulized] Albuterol Sulfate [Proair Hfa] 1 - 2 puff INHALATION RT-Q6H PRN 09/05/17 Calcium Carbonate [Calcium] 600 mg PO DAILY 09/05/17 11/16/17 Cetirizine HCl [Zyrtec] 10 mg PO DAILY 09/05/17 11/16/17 Cholecalciferol [Vitamin D3] 5,000 unit PO HS 09/05/17 11/16/17 Fish Oil/Dha/Epa [Fish Oil 1,200 1 cap PO DAILY 09/05/17 11/16/17 mg Fish Oil] Fluticasone Propionate [Flovent 1 puff INHALATION RT-BID 09/05/17 11/16/17 Hfa 44 mcg] Gabapentin [Neurontin] 800 mg PO TID 09/05/17 11/16/17 Levothyroxine Sodium [Synthroid] 100 mcg PO DAILY 09/05/17 11/16/17 Losartan Potassium [Cozaar] 25 mg PO DAILY 09/05/17 11/16/17 Magnesium 800 mg PO DAILY 09/05/17 11/16/17 Metoprolol Succinate (ER) [Toprol 50 mg PO BID 09/05/17 11/16/17 XL] Montelukast [Singulair] 10 mg PO HS 09/05/17 11/16/17 Ranolazine [Ranexa] 500 mg PO BID 09/05/17 11/16/17 Tiotropium 18 Mcg/Puff [Spiriva] 1 cap INHALATION RT-DAILY 09/05/17 11/16/17 Triamterene/Hydrochlorothiazid 1 tab PO DAILY 09/05/17 11/16/17 [Triamterene-Hctz 37.5-25 mg Tb] Ubidecarenone [Co Q-10] 100 mg PO DAILY 09/05/17 11/16/17 amLODIPine [Norvasc] 10 mg PO DAILY 09/05/17 11/16/17 Fluticasone/Salmeterol [Advair 1 inhalation PO RT-BID 11/16/17 11/16/17 250-50 Diskus] Multivit-Min/FA/Lycopen/Lutein 1 tab PO DAILY 11/16/17 11/16/17 [Centrum Silver Tablet] Nitroglycerin Sl Tabs [Nitrostat] 0.4 mg SUBLINGUAL Q5M PRN 11/16/17 11/16/17 Omeprazole [PriLOSEC] 20 mg PO AC-BRKFST 11/16/17 11/16/17 Psyllium Husk 100% [Metamucil 1 packet PO DAILY PRN 11/16/17 11/16/17 Packet] Previous Rx's Medication Instructions Recorded ALPRAZolam [Xanax] 0.25 mg PO BID PRN #20 tablet 10/01/17 Hydrocodone/Acetaminophen [[place] 1 tab PO TID PRN #20 tablet 10/01/17 7.5-325] Allergies Allergy/AdvReac Type Severity Reaction Status Date / Time gluten Allergy Unknown Verified 11/16/17 17:05 hydromorphone [From Dilaudid] Allergy Unknown Verified 11/16/17 17:05 levofloxacin [From Levaquin] Allergy Unknown Verified 11/16/17 17:05 meperidine [From Demerol] Allergy Unknown Verified 11/16/17 17:05 moxifloxacin [From Avelox] Allergy Unknown Verified 11/16/17 17:05 nitrofurantoin Allergy Unknown Verified 11/16/17 17:05 [From Macrodantin] pitavastatin [From Livalo] Allergy Unknown Verified 11/16/17 17:05 prochlorperazine Allergy Unknown Verified 11/16/17 17:05 [From Compazine] solifenacin [From Vesicare] Allergy Unknown Verified 11/16/17 17:05 Sulfa (Sulfonamide Allergy Unknown Verified 11/16/17 17:05 Antibiotics) wheat Allergy Unknown Verified 11/16/17 17:05 Review of Systems ROS Statement: Those systems with pertinent positive or pertinent negative responses have been documented in the HPI. ROS Other: All systems not noted in ROS Statement are negative. Past Medical History Past Medical History: Asthma, Hyperlipidemia, Hypertension Additional Past Medical History / Comment(s): neuropathy, left BB, history or cardiac caths, diverticulitis History of Any Multi-Drug Resistant Organisms: None Reported Past Surgical History: Appendectomy, Back Surgery, Bladder Surgery, Cholecystectomy, Hysterectomy, Tonsillectomy Additional Past Surgical History / Comment(s): exp lap. ruptured ovary. bladder suspension, eye surgery Past Anesthesia/Blood Transfusion Reactions: No Reported Reaction Past Psychological History: No Psychological Hx Reported Smoking Status: Former smoker Past Alcohol Use History: None Reported Past Drug Use History: None Reported - Past Family History Mother Family Medical History: CVA/TIA Additional Family Medical History / Comment(s): TIA, at age 99 Father Family Medical History: Myocardial Infarction ([place]) Additional Family Medical History / Comment(s): of [place] at 73 Brother(s) Family Medical History: Diabetes Mellitus General Exam - General Exam Comments Initial Comments: General: The patient is awake and alert, in no distress, and does not appear acutely ill. Eye: Pupils are equal, round and reactive to light, extra-ocular movements are intact; there is normal conjunctiva bilaterally. No signs of icterus. Ears, nose, mouth and throat: There are moist mucous membranes. Neck: The neck is supple, there is no tenderness. Cardiovascular: There is a regular rate and rhythm. No murmur, rub or gallop is appreciated. Respiratory: Lungs are clear to auscultation, respirations are non-labored, breath sounds are equal. No wheezes, stridor, rales, or rhonchi. Gastrointestinal: Soft, non-distended, non-tender abdomen without masses or organomegaly noted. There is no rebound or guarding present. No CVA tenderness. Bowel sounds are unremarkable. Back: There is no tenderness to palpation in the midline. There is no obvious deformity. No rashes noted. Musculoskeletal: Normal ROM, no tenderness, There is no pedal edema. There is no calf tenderness or swelling. Sensation intact. Pulses equal bilaterally 2+. Neurological: CN II-XII intact, There are no obvious motor or sensory deficits. Coordination appears grossly intact. Speech is normal. Skin: Skin is warm and dry and no rashes or lesions are noted. Psychiatric: Cooperative, appropriate mood & affect, normal judgment. Limitations: no limitations Course Vital Signs 11/16/17 11/16/17 15:56 18:46 Temperature 99.8 F H Pulse Rate 78 71 Respiratory 18 16 Rate Blood Pressure 138/64 150/66 O2 Sat by Pulse 96 93 L Oximetry Medical Decision Making - Medical Decision Making 72-year-old female presents emergency department with chief complaint dysuria. At this time patient's laboratory is reviewed. She does have mildly overweight blood cell, there is concern for UTI. At this time due to the low-grade fever that was present 99.8 upon arrival we did offer the patient admission to the hospital for continued IV antibiotics. She states she would rather go home she's been in the hospital quite often she better take care of this at home. At this time we will respect her wishes. We did give her IV Rocephin we'll start her on ciprofloxacin. We did discuss close follow-up with her doctor we did discuss that she could require admission would happen and we discussed return parameters. Patient stated that she understood and she is agreement this plan. All questions have been answered. She will be discharged home. - Lab Data Result diagrams: 11/16/17 17:15 11/16/17 17:15 Lab Results 11/16/17 11/16/17 11/16/17 Range/Units 17:15 17:15 17:15 WBC 15.3 H (3.8-10.6) k/uL RBC 4.30 (3.80-5.40) m/uL Hgb 13.1 (11.4-16.0) gm/dL Hct 39.2 (34.0-46.0) % MCV 91.3 (80.0-100.0) fL MCH 30.5 (25.0-35.0) pg MCHC 33.5 (31.0-37.0) g/dL RDW 13.4 (11.5-15.5) % Plt Count 199 (150-450) k/uL Neutrophils % 91 % Lymphocytes % 5 % Monocytes % 3 % Eosinophils % 1 % Basophils % 0 % Neutrophils # 13.9 H (1.3-7.7) k/uL Lymphocytes # 0.7 L (1.0-4.8) k/uL Monocytes # 0.5 (0-1.0) k/uL Eosinophils # 0.1 (0-0.7) k/uL Basophils # 0.0 (0-0.2) k/uL Sodium 129 L (137-145) mmol/L Potassium 4.5 (3.5-5.1) mmol/L Chloride 96 L (98-107) mmol/L Carbon Dioxide 24 (22-30) mmol/L Anion Gap 9 mmol/L BUN 17 (7-17) mg/dL Creatinine 0.70 (0.52-1.04) mg/dL Est GFR (MDRD) Af Amer >60 (>60 ml/min/1.73 sqM) Est GFR (MDRD) Non-Af >60 (>60 ml/min/1.73 sqM) Glucose 110 H (74-99) mg/dL Plasma Lactic Acid Julio 1.7 (0.7-2.0) mmol/L Calcium 9.6 (8.4-10.2) mg/dL Total Bilirubin 0.7 (0.2-1.3) mg/dL AST 31 (14-36) U/L ALT 42 (9-52) U/L Alkaline Phosphatase 72 (38-126) U/L Total Protein 6.6 (6.3-8.2) g/dL Albumin 4.0 (3.5-5.0) g/dL Urine Color Urine Appearance (Clear) Urine pH (5.0-8.0) Ur Specific [place] (1.001-1.035) Urine Protein (Negative) Urine Glucose (UA) (Negative) Urine Ketones (Negative) Urine Blood (Negative) Urine Nitrite (Negative) Urine Bilirubin (Negative) Urine Urobilinogen (<2.0) mg/dL Ur Leukocyte Esterase (Negative) Urine RBC (0-5) /hpf Urine WBC (0-5) /hpf Ur Squamous Epith Cells (0-4) /hpf 11/16/17 Range/Units 18:08 WBC (3.8-10.6) k/uL RBC (3.80-5.40) m/uL Hgb (11.4-16.0) gm/dL Hct (34.0-46.0) % MCV (80.0-100.0) fL MCH (25.0-35.0) pg MCHC (31.0-37.0) g/dL RDW (11.5-15.5) % Plt Count (150-450) k/uL Neutrophils % % Lymphocytes % % Monocytes % % Eosinophils % % Basophils % % Neutrophils # (1.3-7.7) k/uL Lymphocytes # (1.0-4.8) k/uL Monocytes # (0-1.0) k/uL Eosinophils # (0-0.7) k/uL Basophils # (0-0.2) k/uL Sodium (137-145) mmol/L Potassium (3.5-5.1) mmol/L Chloride (98-107) mmol/L Carbon Dioxide (22-30) mmol/L Anion Gap mmol/L BUN (7-17) mg/dL Creatinine (0.52-1.04) mg/dL Est GFR (MDRD) Af Amer (>60 ml/min/1.73 sqM) Est GFR (MDRD) Non-Af (>60 ml/min/1.73 sqM) Glucose (74-99) mg/dL Plasma Lactic Acid Julio (0.7-2.0) mmol/L Calcium (8.4-10.2) mg/dL Total Bilirubin (0.2-1.3) mg/dL AST (14-36) U/L ALT (9-52) U/L Alkaline Phosphatase (38-126) U/L Total Protein (6.3-8.2) g/dL Albumin (3.5-5.0) g/dL Urine Color Yellow Urine Appearance Clear (Clear) Urine pH 7.5 (5.0-8.0) Ur Specific [place] 1.007 (1.001-1.035) Urine Protein Negative (Negative) Urine Glucose (UA) Negative (Negative) Urine Ketones Negative (Negative) Urine Blood Negative (Negative) Urine Nitrite Negative (Negative) Urine Bilirubin Negative (Negative) Urine Urobilinogen <2.0 (<2.0) mg/dL Ur Leukocyte Esterase Large H (Negative) Urine RBC 5 (0-5) /hpf Urine WBC 14 H (0-5) /hpf Ur Squamous Epith Cells <1 (0-4) /hpf - Radiology Data Radiology results: report reviewed, image reviewed Disposition Clinical Impression: UTI (urinary tract infection), Hyponatremia Disposition: HOME SELF-CARE Condition: Stable Instructions: Urinary Tract Infection in Women (ED) Additional Instructions: Please use medication as discussed. Please follow up with family doctor if symptoms have not improved over the next two days. Please return to the emergency room if your symptoms increase or worsen or for any other concerns. Referrals: Erick Zamarripa MD [Primary Care Provider] - 1-2 days Time of Disposition: 19:53
[2017-11-16] MEDS ORDERED: SODIUM CHLORIDE 0.9% 1,000 ML IV STA (16:58)
[2017-11-16 17:25] LABS: Basophils % (A) 0 %; Eosinophils # (A) 0.1 k/uL (0-0.7); Eosinophils % (A) 1 %; HCT 39.2 % (34.0-46.0); HGB 13.1 gm/dL (11.4-16.0); Lymphocytes # (A) 0.7 k/uL (1.0-4.8); Lymphocytes % (A) 5 %; MCH 30.5 pg (25.0-35.0); MCHC 33.5 g/dL (31.0-37.0); MCV 91.3 fL (80.0-100.0); Mean Platelet Volume 8.1; Monocytes # (A) 0.5 k/uL (0-1.0); Monocytes % (A) 3 %; Neutrophils # (A) 13.9 k/uL (1.3-7.7); Neutrophils % (A) 91 %; Platelet Count 199 k/uL (150-450); RDW 13.4 % (11.5-15.5); WBC 15.3 k/uL (3.8-10.6)
[2017-11-16 17:34] LABS: ALT 42 U/L (9-52); AST 31 U/L (14-36); Alkaline Phosphatase 72 U/L (38-126); Anion Gap 9 mmol/L; Blood Urea Nitrogen 17 mg/dL (7-17); Calcium 9.6 mg/dL (8.4-10.2); Carbon Dioxide 24 mmol/L (22-30); Chloride 96 mmol/L (98-107); Glucose 110 mg/dL (74-99); Potassium 4.5 mmol/L (3.5-5.1); Sodium 129 mmol/L (137-145); Total Bilirubin 0.7 mg/dL (0.2-1.3); Total Protein 6.6 g/dL (6.3-8.2)
[2017-11-16 18:14] LABS: Appearance,Urine Clear (Clear); Bilirubin,Urine Negative (Negative); Blood,Urine Negative (Negative); Color,Urine Yellow; Glucose,Urine (UA) Negative (Negative); Ketones,Urine Negative (Negative); Leukocyte Esterase,Urine Large (Negative); Nitrite,Urine Negative (Negative); PH, Urine 7.5 (5.0-8.0); Protein,Urine Negative (Negative); RBC,Urine 5 /hpf (0-5); Specific Gravity,Urine 1.007 (1.001-1.035); Squamous Epithelial Cell,Urine <1 /hpf (0-4); Urobilinogen,Urine <2.0 mg/dL (<2.0); WBC,Urine 14 /hpf (0-5)
[2017-11-16] MEDS ORDERED: RX INFO: IV CONTRAST WAS GIVEN 1 EACH MISC MISCELLANE PRN (18:20)
[2017-11-16] MEDS ORDERED: cefTRIAXone IN SWFI 1,000 MG/10 ML SYRINGE IVP STA (18:20)
--- NOTE | 2017-11-16 19:44 | CT ---
EXAMINATION TYPE: CT abdomen pelvis w con DATE OF EXAM: 11/16/2017 COMPARISON: 09/25/2017 HISTORY: generalized pain with urination chagevette CT DLP: 1407.3 mGycm Automated exposure control for dose reduction was used. TECHNIQUE: Helical acquisition of images was performed from the lung bases through the pelvis. CONTRAST: Performed without Oral Contrast and with IV Contrast, patient injected with 100 mL of Omnipaque 300. FINDINGS: Lung bases are clear. There is no pleural effusion. Liver spleen pancreas appear normal. There are cl ips from cholecystectomy. Bile ducts are not dilated. There is no adrenal mass. Kidneys show satisfac tory contrast opacification. There is no hydronephrosis. There are numerous diverticula in the sigmoi d colon. Bladder distends smoothly. I see no intestinal wall thickening. There is no sign of appendic itis. There is no ascites. There is no retroperitoneal adenopathy. I see no bony destructive process. Urinary bladder is large and measures 14 cm in length. IMPRESSION: EXTENSIVE SIGMOID DIVERTICULOSIS. NO SIGN OF DIVERTICULITIS. MILDLY DILATED URINARY BLADDER. NO SIGNIFICANT CHANGE COMPARED TO OLD EXAM.
[2017-11-16] MEDS ORDERED: AMOXIC-POT CLAV 875-125MG 1 EACH TAB PO STA (19:53)
[2017-11-16 20:03] VITALS: BP 148/67; PULSE 73; RESP 18
== END 2017-11-16 20:08 | disposition home or self-care (01) ==
LOC: EC 15:52
DX: N39.0 Urinary tract infection, site not specified (principal); E87.1 Hypo-osmolality and hyponatremia; J45.909 Unspecified asthma, uncomplicated; E78.5 Hyperlipidemia, unspecified; I10 Essential (primary) hypertension; Z90.49 Acquired absence of other specified parts of digestive tract; Z87.19 Personal history of other diseases of the digestive system; Z87.891 Personal history of nicotine dependence; Z88.5 Allergy status to narcotic agent; Z88.1 Allergy status to other antibiotic agents; Z88.2 Allergy status to sulfonamides; Z91.018 Allergy to other foods; Z88.8 Allergy status to other drugs, medicaments and biological substances; Z79.51 Long term (current) use of inhaled steroids; Z79.899 Other long term (current) drug therapy
CPT/HCPCS: 51798; 36415; 80053; 83605; 85025; 81001; 87040; 87086; 87077; 87186; 74177; 99284; 51701; 96374; 96361; J0696; Q9967

== ENCOUNTER → 2018-07-02 | Outpatient (CLI) | payer MEDICARE ==
[2018-07-02 13:47] LABS: ALT 46 U/L (9-52); AST 37 U/L (14-36); Alkaline Phosphatase 68 U/L (38-126); Bilirubin, Delta 0.3 mg/dL (0.0-0.2); Bilirubin,Unconjugated 0.1 mg/dL (0.0-1.1); Cholesterol 149 mg/dL (<200); Creatine Kinase 103 U/L (30-135); Glucose 105 mg/dL (74-99); HDL Cholesterol 86 mg/dL (40-60); LDL Cholesterol,Calculated 30 mg/dL (0-99); Total Bilirubin 0.4 mg/dL (0.2-1.3); Triglycerides 163 mg/dL (<150)
[2018-07-02 14:02] LABS: T4, Free (Free Thyroxine) 1.37 ng/dL (0.78-2.19)
== END | disposition home or self-care (01) ==
LOC: LABWHC1 12:53
PROVIDERS: ATTEND Internal Medicine
DX: E78.2 Mixed hyperlipidemia (principal); E66.09 Other obesity due to excess calories; R74.0 Nonspecific elevation of levels of transaminase and lactic acid dehydrogenase [LDH]; I25.10 Atherosclerotic heart disease of native coronary artery without angina pectoris; I10 Essential (primary) hypertension; E03.9 Hypothyroidism, unspecified
CPT/HCPCS: 36415; 80061; 82172; 82248; 82550; 82565; 82947; 84075; 84439; 84443; 84450; 84460

== ENCOUNTER 2018-07-13 18:52 | Emergency (ER) | payer MEDICARE ==
[2018-07-13] MEDS ORDERED: SODIUM CHLORIDE 0.9% 1,000 ML IV ONE ×2 (19:40)
--- NOTE | 2018-07-13 19:44 | ED ---
General Adult HPI - General Chief complaint: Urogenital Stated complaint: UTI Time Seen by Provider: 07/13/18 19:31 Source: patient, RN notes reviewed, old records reviewed Mode of arrival: ambulatory Limitations: no limitations - History of Present Illness Initial comments: this is a 73-year-old female presents emergency Department chief complaint of chest chills and sweats for the past month. Patient reports it multiple times a day she'll break out in a severe sweat. She goes to make sure today. Patient reports she was seen in urgent care today and they diagnosed her with urinary tract infection and sent her here for reevaluation. Patient reports she 's been having these cold sweats for the past month. She states that she has had sinus infection prior to the onset of this. History of antibiotics that she was doing well. Patient states that she's had no recorded fevers. She denies any chest pain or shortness breath. She does report she has some mild back pain at this time. She does state she has some lower abdominal pain and tenderness. She thought that she was having urinary tract infectionwith polyuria and dysuria which sent her to see the urgent care today. - Related Data Home Medications Medication Instructions Recorded Confirmed Albuterol Nebulized [Ventolin 2.5 mg INHALATION RT-Q4H PRN 09/05/17 11/16/17 Nebulized] Albuterol Sulfate [Proair Hfa] 1 - 2 puff INHALATION RT-Q6H PRN 09/05/17 Calcium Carbonate [Calcium] 600 mg PO DAILY 09/05/17 11/16/17 Cetirizine HCl [Zyrtec] 10 mg PO DAILY 09/05/17 11/16/17 Cholecalciferol [Vitamin D3] 5,000 unit PO HS 09/05/17 11/16/17 Fish Oil/Dha/Epa [Fish Oil 1,200 1 cap PO DAILY 09/05/17 11/16/17 mg Fish Oil] Fluticasone Propionate [Flovent 1 puff INHALATION RT-BID 09/05/17 11/16/17 Hfa 44 mcg] Gabapentin [Neurontin] 800 mg PO TID 09/05/17 11/16/17 Levothyroxine Sodium [Synthroid] 100 mcg PO DAILY 09/05/17 11/16/17 Losartan Potassium [Cozaar] 25 mg PO DAILY 09/05/17 11/16/17 Magnesium 800 mg PO DAILY 09/05/17 11/16/17 Metoprolol Succinate (ER) [Toprol 50 mg PO BID 09/05/17 11/16/17 XL] Montelukast [Singulair] 10 mg PO HS 09/05/17 11/16/17 Ranolazine [Ranexa] 500 mg PO BID 09/05/17 11/16/17 Tiotropium 18 Mcg/Puff [Spiriva] 1 cap INHALATION RT-DAILY 09/05/17 11/16/17 Triamterene/Hydrochlorothiazid 1 tab PO DAILY 09/05/17 11/16/17 [Triamterene-Hctz 37.5-25 mg Tb] Ubidecarenone [Co Q-10] 100 mg PO DAILY 09/05/17 11/16/17 amLODIPine [Norvasc] 10 mg PO DAILY 09/05/17 11/16/17 Fluticasone/Salmeterol [Advair 1 inhalation PO RT-BID 11/16/17 11/16/17 250-50 Diskus] Multivit-Min/FA/Lycopen/Lutein 1 tab PO DAILY 11/16/17 11/16/17 [Centrum Silver Tablet] Nitroglycerin Sl Tabs [Nitrostat] 0.4 mg SUBLINGUAL Q5M PRN 11/16/17 11/16/17 Omeprazole [PriLOSEC] 20 mg PO AC-BRKFST 11/16/17 11/16/17 Psyllium Husk 100% [Metamucil 1 packet PO DAILY PRN 11/16/17 11/16/17 Packet] Previous Rx's Medication Instructions Recorded ALPRAZolam [Xanax] 0.25 mg PO BID PRN #20 tablet 10/01/17 Hydrocodone/Acetaminophen [[place] 1 tab PO TID PRN #20 tablet 10/01/17 7.5-325] Amoxicillin/Potassium Clav 1 tab PO Q12HR #20 tab 11/16/17 [Augmentin 875-125 Tablet] Cephalexin [Keflex] 500 mg PO Q8HR #21 cap 07/13/18 Nitrofurantoin Monohyd/M-Cryst 100 mg PO Q12HR #14 cap 07/13/18 [Macrobid] Allergies Allergy/AdvReac Type Severity Reaction Status Date / Time gluten Allergy Unknown Verified 07/13/18 19:05 hydromorphone [From Dilaudid] Allergy Unknown Verified 07/13/18 19:05 levofloxacin [From Levaquin] Allergy Unknown Verified 07/13/18 19:05 meperidine [From Demerol] Allergy Unknown Verified 07/13/18 19:05 moxifloxacin [From Avelox] Allergy Unknown Verified 07/13/18 19:05 nitrofurantoin Allergy Unknown Verified 07/13/18 19:05 [From Macrodantin] pitavastatin [From Livalo] Allergy Unknown Verified 07/13/18 19:05 prochlorperazine Allergy Unknown Verified 07/13/18 19:05 [From Compazine] solifenacin [From Vesicare] Allergy Unknown Verified 07/13/18 19:05 Sulfa (Sulfonamide Allergy Unknown Verified 07/13/18 19:05 Antibiotics) wheat Allergy Unknown Verified 07/13/18 19:05 Review of Systems ROS Statement: Those systems with pertinent positive or pertinent negative responses have been documented in the HPI. ROS Other: All systems not noted in ROS Statement are negative. Past Medical History Past Medical History: Asthma, Hyperlipidemia, Hypertension Additional Past Medical History / Comment(s): neuropathy, left BB, history or cardiac caths, diverticulitis History of Any Multi-Drug Resistant Organisms: None Reported Past Surgical History: Appendectomy, Back Surgery, Bladder Surgery, Cholecystectomy, Hysterectomy, Tonsillectomy Additional Past Surgical History / Comment(s): exp lap. ruptured ovary. bladder suspension, eye surgery Past Anesthesia/Blood Transfusion Reactions: No Reported Reaction Past Psychological History: No Psychological Hx Reported Smoking Status: Former smoker Past Alcohol Use History: Occasional Past Drug Use History: None Reported - Past Family History Mother Family Medical History: CVA/TIA Additional Family Medical History / Comment(s): TIA, at age 99 Father Family Medical History: Myocardial Infarction ([place]) Additional Family Medical History / Comment(s): of [place] at 73 Brother(s) Family Medical History: Diabetes Mellitus General Exam - General Exam Comments Initial Comments: Patient is a 73-year-old female. She is alert and oriented. No significant distress. Limitations: no limitations General appearance: alert, in no apparent distress Head exam: Present: atraumatic, normocephalic, normal inspection Eye exam: Present: normal appearance, PERRL, EOMI. Absent: scleral icterus, conjunctival injection, periorbital swelling ENT exam: Present: normal exam, mucous membranes moist Neck exam: Present: normal inspection. Absent: tenderness, meningismus, lymphadenopathy Respiratory exam: Present: normal lung sounds bilaterally. Absent: respiratory distress, wheezes, rales, rhonchi, stridor Cardiovascular Exam: Present: regular rate, normal rhythm, normal heart sounds. Absent: systolic murmur, diastolic murmur, rubs, gallop, clicks GI/Abdominal exam: Present: soft, normal bowel sounds. Absent: distended, guarding, rebound, rigid Extremities exam: Present: normal inspection, full ROM, normal capillary refill. Absent: tenderness, pedal edema, joint swelling, calf tenderness Back exam: Present: normal inspection Neurological exam: Present: alert, oriented X3, CN II-XII intact Psychiatric exam: Present: normal affect, normal mood Skin exam: Present: warm, dry, intact, normal color. Absent: rash Course Vital Signs 07/13/18 07/13/18 19:00 23:01 Temperature 98.2 F 97.8 F Pulse Rate 73 67 Respiratory 18 16 Rate Blood Pressure 157/79 179/80 O2 Sat by Pulse 99 100 Oximetry Medical Decision Making - Medical Decision Making 73-year-old female present today with sweats for the past month. Patient reports her past few days she's had urinary frequency. Patient was sent in today for evaluation due to concern for urinary tract infection. The second patient's labwork was unremarkable. Urinalysis shows no significant changes infection. exudative after multiple times. patient's ekg other lab work was unremarkable. with his significant night sweats and. constant sweating and did want to do a cat scan of her abdomen and pelvis to rule out any kind of cancerous etiology her sweating. this time is negative for any acute disease patient is a left renal stone. at this time patient's to be discharged with follow-up with primary care provider. urine culture pending. all questions answered return parameters were discussed. - Lab Data Result diagrams: 07/13/18 19:30 07/13/18 19:30 Lab Results 07/13/18 07/13/18 07/13/18 Range/Units 19:30 19:30 19:30 WBC 7.0 (3.8-10.6) k/uL RBC 4.87 (3.80-5.40) m/uL Hgb 14.6 (11.4-16.0) gm/dL Hct 44.8 (34.0-46.0) % MCV 92.2 (80.0-100.0) fL MCH 30.0 (25.0-35.0) pg MCHC 32.6 (31.0-37.0) g/dL RDW 12.9 (11.5-15.5) % Plt Count 208 (150-450) k/uL Neutrophils % 60 % Lymphocytes % 28 % Monocytes % 7 % Eosinophils % 2 % Basophils % 1 % Neutrophils # 4.3 (1.3-7.7) k/uL Lymphocytes # 2.0 (1.0-4.8) k/uL Monocytes # 0.5 (0-1.0) k/uL Eosinophils # 0.1 (0-0.7) k/uL Basophils # 0.0 (0-0.2) k/uL PT 9.5 (9.0-12.0) sec INR 1.0 (<1.2) APTT 22.0 (22.0-30.0) sec Sodium 136 L (137-145) mmol/L Potassium 3.9 (3.5-5.1) mmol/L Chloride 98 (98-107) mmol/L Carbon Dioxide 29 (22-30) mmol/L Anion Gap 9 mmol/L BUN 26 H (7-17) mg/dL Creatinine 0.90 (0.52-1.04) mg/dL Est GFR (CKD-EPI)AfAm 74 (>60 ml/min/1.73 sqM) Est GFR (CKD-EPI)NonAf 64 (>60 ml/min/1.73 sqM) Glucose 98 (74-99) mg/dL Plasma Lactic Acid Julio (0.7-2.0) mmol/L Calcium 10.0 (8.4-10.2) mg/dL Total Bilirubin 0.3 (0.2-1.3) mg/dL AST 46 H (14-36) U/L ALT 51 (9-52) U/L Alkaline Phosphatase 73 (38-126) U/L Troponin I (0.000-0.034) ng/mL Total Protein 7.3 (6.3-8.2) g/dL Albumin 4.6 (3.5-5.0) g/dL Urine Color Urine Appearance (Clear) Urine pH (5.0-8.0) Ur Specific [place] (1.001-1.035) Urine Protein (Negative) Urine Glucose (UA) (Negative) Urine Ketones (Negative) Urine Blood (Negative) Urine Nitrite (Negative) Urine Bilirubin (Negative) Urine Urobilinogen (<2.0) mg/dL Ur Leukocyte Esterase (Negative) 07/13/18 07/13/18 07/13/18 Range/Units 19:30 19:30 19:50 WBC (3.8-10.6) k/uL RBC (3.80-5.40) m/uL Hgb (11.4-16.0) gm/dL Hct (34.0-46.0) % MCV (80.0-100.0) fL MCH (25.0-35.0) pg MCHC (31.0-37.0) g/dL RDW (11.5-15.5) % Plt Count (150-450) k/uL Neutrophils % % Lymphocytes % % Monocytes % % Eosinophils % % Basophils % % Neutrophils # (1.3-7.7) k/uL Lymphocytes # (1.0-4.8) k/uL Monocytes # (0-1.0) k/uL Eosinophils # (0-0.7) k/uL Basophils # (0-0.2) k/uL PT (9.0-12.0) sec INR (<1.2) APTT (22.0-30.0) sec Sodium (137-145) mmol/L Potassium (3.5-5.1) mmol/L Chloride (98-107) mmol/L Carbon Dioxide (22-30) mmol/L Anion Gap mmol/L BUN (7-17) mg/dL Creatinine (0.52-1.04) mg/dL Est GFR (CKD-EPI)AfAm (>60 ml/min/1.73 sqM) Est GFR (CKD-EPI)NonAf (>60 ml/min/1.73 sqM) Glucose (74-99) mg/dL Plasma Lactic Acid Julio 1.0 (0.7-2.0) mmol/L Calcium (8.4-10.2) mg/dL Total Bilirubin (0.2-1.3) mg/dL AST (14-36) U/L ALT (9-52) U/L Alkaline Phosphatase (38-126) U/L Troponin I <0.012 (0.000-0.034) ng/mL Total Protein (6.3-8.2) g/dL Albumin (3.5-5.0) g/dL Urine Color Light Yellow Urine Appearance Clear (Clear) Urine pH 6.5 (5.0-8.0) Ur Specific [place] 1.008 (1.001-1.035) Urine Protein Negative (Negative) Urine Glucose (UA) Negative (Negative) Urine Ketones Negative (Negative) Urine Blood Negative (Negative) Urine Nitrite Negative (Negative) Urine Bilirubin Negative (Negative) Urine Urobilinogen <2.0 (<2.0) mg/dL Ur Leukocyte Esterase Negative (Negative) 07/13/18 19:45 EKG shows a sinus rhythm left axis deviation. Left bundle branch block. Abnormal EKG noted. Ventricular rate of 66 bpm. Interval is 184 ms. QRS ration 156 ms. QT QTc is 438/459 ms. No evidence of ST elevation or T-wave inversions. - Radiology Data Radiology results: report reviewed Normal chest x-ray. No acute changes. Chest x-ray was negative for any acute abdomen. Nonobstructing left renal calcification. Atherosclerotic vascular disease. Moderate sigmoid diverticulosis without diverticulitis. No sign of acute abdomen and pelvis. Small milk or hernia containing fat. Disposition Clinical Impression: Diaphoresis, Dysuria Disposition: HOME SELF-CARE Condition: Good Instructions: Urinary Tract Infection in Children (ED) Additional Instructions: Patient advised to follow-up with primary care provider. Return to the emergency department if any alarming signs or symptoms occur. Take the medication as prescribed. Prescriptions: Cephalexin [Keflex] 500 mg PO Q8HR #21 cap Nitrofurantoin Monohyd/M-Cryst [Macrobid] 100 mg PO Q12HR #14 cap Is patient prescribed a controlled substance at d/c from ED?: No Referrals: Erick Zamarripa MD [Primary Care Provider] - 1-2 days Time of Disposition: 23:38
[2018-07-13 19:55] LABS: Basophils % (A) 1 %; Eosinophils # (A) 0.1 k/uL (0-0.7); Eosinophils % (A) 2 %; HCT 44.8 % (34.0-46.0); HGB 14.6 gm/dL (11.4-16.0); Lymphocytes % (A) 28 %; MCHC 32.6 g/dL (31.0-37.0); MCV 92.2 fL (80.0-100.0); Mean Platelet Volume 7.8; Monocytes # (A) 0.5 k/uL (0-1.0); Monocytes % (A) 7 %; Neutrophils # (A) 4.3 k/uL (1.3-7.7); Neutrophils % (A) 60 %; Platelet Count 208 k/uL (150-450); RBC 4.87 m/uL (3.80-5.40); RDW 12.9 % (11.5-15.5)
[2018-07-13 20:07] LABS: Albumin 4.6 g/dL (3.5-5.0); Potassium 3.9 mmol/L (3.5-5.1); Total Bilirubin 0.3 mg/dL (0.2-1.3); Total Protein 7.3 g/dL (6.3-8.2)
[2018-07-13 20:10] LABS: Prothrombin Time 9.5 sec (9.0-12.0)
[2018-07-13 20:11] LABS: Appearance,Urine Clear (Clear); Bilirubin,Urine Negative (Negative); Blood,Urine Negative (Negative); Color,Urine Light Yellow; Glucose,Urine (UA) Negative (Negative); Ketones,Urine Negative (Negative); Leukocyte Esterase,Urine Negative (Negative); Nitrite,Urine Negative (Negative); PH, Urine 6.5 (5.0-8.0); Protein,Urine Negative (Negative); Specific Gravity,Urine 1.008 (1.001-1.035); Urobilinogen,Urine <2.0 mg/dL (<2.0)
--- NOTE | 2018-07-13 20:33 | XR ---
EXAMINATION TYPE: XR KUB DATE OF EXAM: 07/13/2018 COMPARISON: NONE HISTORY: Abdominal pain TECHNIQUE: 2 views upright FINDINGS: Bowel gas pattern is normal. There is no sign of intestinal obstruction or pneumoperitoneum . Fecal pattern is normal. There are clips from cholecystectomy. There is slight lumbar levoscoliosis . IMPRESSION: Nonacute abdomen.
--- NOTE | 2018-07-13 20:34 | XR ---
EXAMINATION TYPE: XR chest 2V DATE OF EXAM: 07/13/2018 COMPARISON: 09/28/2017 HISTORY: Urinary tract infection TECHNIQUE: Frontal and lateral views of the chest are obtained. FINDINGS: Heart and mediastinum are normal. Lungs are clear. Diaphragm is normal. Bony thorax appear s normal. IMPRESSION: Normal chest. No change.
--- NOTE | 2018-07-13 23:22 | CT ---
EXAMINATION TYPE: CT abdomen pelvis w con DATE OF EXAM: 07/13/2018 COMPARISON: 11/16/2017 HISTORY: Sweats and urinary frequency. CT DLP: 1346.9 mGycm Automated exposure control for dose reduction was used. TECHNIQUE: Helical acquisition of images was performed from the lung bases through the pelvis. CONTRAST: Performed without Oral Contrast and with IV Contrast, patient injected with 100 mL of Isovue 300. FINDINGS: Lung bases are clear. There is no pleural effusion. Heart size is normal. Liver spleen pancreas appear normal. Bile ducts are not dilated. There are clips from cholecystectomy . There is no adrenal mass. Kidneys show satisfactory contrast opacification. There is no hydronephrosi s. There is possible 2 mm calculus in the posterior left kidney. Abdominal aorta is atheromatous. The re is no retroperitoneal adenopathy. There is no ascites. There are multiple sigmoid diverticula. The re is no sign of diverticulitis. Bladder distends smoothly. There is no free fluid in the pelvis. The re is no sign of a pelvic mass. Hysterectomy is noted. I see no bony destructive process. There is no lumbar compression fracture. Appendix is not definitely seen. There is no sign of appendicitis. IMPRESSION: NONOBSTRUCTING LEFT RENAL CALCIFICATION. ATHEROSCLEROTIC VASCULAR DISEASE. MODERATE SIGMOID DIVERTICU LOSIS WITHOUT DIVERTICULITIS. NO SIGN OF ACUTE ABDOMEN AND PELVIS. SMALL UMBILICAL HERNIA CONTAINS FA T.
[2018-07-13] MEDS ORDERED: CEPHALEXIN 500MG STARTER PACK 4 CAP BTL PO STA (23:51)
[2018-07-14] VITALS: BP 169/79; PULSE 79; RESP 18; TEMP 98.7
== END 2018-07-14 | disposition home or self-care (01) ==
LOC: EC 18:52
DX: R30.0 Dysuria (principal); R61 Generalized hyperhidrosis; K57.30 Diverticulosis of large intestine without perforation or abscess without bleeding; R93.8 Abnormal findings on diagnostic imaging of other specified body structures; I70.90 Unspecified atherosclerosis; I44.7 Left bundle-branch block, unspecified; R94.31 Abnormal electrocardiogram [ECG] [EKG]; R35.0 Frequency of micturition; R10.30 Lower abdominal pain, unspecified; M54.9 Dorsalgia, unspecified; R68.83 Chills (without fever); J45.909 Unspecified asthma, uncomplicated; I10 Essential (primary) hypertension; G62.9 Polyneuropathy, unspecified; Z87.891 Personal history of nicotine dependence; Z79.51 Long term (current) use of inhaled steroids; Z79.899 Other long term (current) drug therapy; Z88.1 Allergy status to other antibiotic agents; Z88.2 Allergy status to sulfonamides; Z88.5 Allergy status to narcotic agent; Z88.8 Allergy status to other drugs, medicaments and biological substances; Z91.018 Allergy to other foods; Z91.048 Other nonmedicinal substance allergy status; Z87.19 Personal history of other diseases of the digestive system; Z90.49 Acquired absence of other specified parts of digestive tract; Z98.890 Other specified postprocedural states
CPT/HCPCS: 36415; 93005; 80053; 83605; 84484; 85025; 85610; 85730; 81003; 87040; 87086; 71046; 74018; 74177; 99285; 96360; 96361 ×3; Q9967

== ENCOUNTER → 2019-06-07 | Outpatient (CLI) | payer MEDICARE ==
--- NOTE | 2019-06-07 21:07 | CT ---
EXAMINATION TYPE: CT brain wo/w con DATE OF EXAM: 06/07/2019 COMPARISON: None. HISTORY: Weakness, unsteadiness and memory loss CT DLP: 2289.4 mGycm Automated exposure control for dose reduction was used. CONTRAST: CT scan of the head is performed without and with IV Contrast, patient injected with 100 mL of Isovue 300. FINDINGS: Noncontrast images show no acute intracranial hemorrhage or midline shift. There is ventricular and s ulcal prominence. There is low attenuation in the deep and periventricular white matter. Postcontrast images show no suspicious enhancing intraparenchymal masses. The globes are intact and the visualize d sinuses are clear. IMPRESSION: There is mild to moderate diffuse cerebral atrophy and fairly moderate chronic small vess el ischemic change. No suspicious enhancement is noted.
--- NOTE | 2019-06-08 10:56 | US ---
EXAMINATION TYPE: US thyroid st tissue head/neck DATE OF EXAM: 06/07/2019 COMPARISON: NONE CLINICAL HISTORY: 74-year-old female HYPOTHYROIDISM. TECHNIQUE: Multiple sonographic images of the thyroid gland are obtained. FINDINGS: GLAND SIZE: Right Lobe: 5.0 x 4.3 x 1.7 cm Overall Parenchyma: homogenous Left Lobe: 4.9 x 1.5 x 1.4 cm Overall Parenchyma: homogeneous Isthmus Thickness: 0.2 cm NODULES RIGHT: # of nodules measured on right: 4 1. 0.7 X 0.4 x 0.6 cm anechoic cystic nodule at the upper pole with well-defined margins. There is some mural-based echogenic foci, likely colloid cyst. This nodule is wider than tall and shows no in tranodular vascularity. No priors 2. 0.7 X 0.5 x 0.4 cm anechoic cystic nodule at the upper pole with well-defined margins. This nodu le is wider than tall and shows no intranodular vascularity. 3. 0.6 X 0.6 x 0.6 cm hypoechoic solid nodule at the mid pole with well-defined margins; peripheral calcification. This nodule is wider than tall and shows no intranodular vascularity. 4. 0.7 X 0.5 x 0.8 cm hypoechoic solid nodule at the lower pole with well-defined margins. This nod ule is wider than tall and shows intranodular vascularity. LEFT: # of nodules measured on left: 1. 1.1 X 0.8 x 0.8 cm hypoechoic solid nodule at the mid pole with well-defined margins; this appea rs densely calcified. This nodule is wider than tall and shows no intranodular vascularity. No prior ISTHMUS: # of nodules measured in the isthmus: 0 Bilateral neck scanned, no evidence of lymphadenopathy. IMPRESSION: 1. 2 solid nodules on the right measuring 8 mm and 6 mm. The other 2 nodules on the right are cystic and benign. 2. Dominant, solid and densely calcified nodule on the left measuring 1.1 cm. 3. Follow-up can be performed.
== END | disposition home or self-care (01) ==
LOC: RADUSWWP 16:14
PROVIDERS: ATTEND Family Medicine
DX: G31.9 Degenerative disease of nervous system, unspecified (principal); I67.82 Cerebral ischemia; E04.1 Nontoxic single thyroid nodule; E03.9 Hypothyroidism, unspecified
CPT/HCPCS: 82565; 84520; 76536; 70470; 36415; Q9967